=== PATIENT | female | born 1965 | race Caucasian/White ===

== ENCOUNTER 2020-08-02 12:10 | Outpatient (REF) | payer MEDICARE, SELFPAY ==
[2020-08-02 14:24] LABS: Alanine Aminotransferase 16 U/L (0-31); Albumin Level 4.3 g/dL (3.5-5.0); Alkaline Phosphatase 109 U/L (39-117); Anion Gap 14 (12-20); Aspartate Amino Transferase 15 U/L (5-31); Bilirubin Direct 0.2 mg/dL (0.0-0.5); Bilirubin Total 0.6 mg/dL (0.0-1.0); Blood Urea Nitrogen 14 mg/dL (9-16); Calcium 9.6 mg/dL (8.4-10.2); Carbon Dioxide 25 mmol/L (22-29); Chloride 107 mmol/L (96-108); Cholesterol 221 mg/dL; Estimated Glomerular Filt Rate > 60; Glucose Fasting 86 mg/dL (60-99); HDL Cholesterol 41 mg/dL; LDL Cholesterol Calculated 141 mg/dl; Potassium 4.5 mmol/L (3.3-5.1); Sodium 141 mmol/L (135-145); Total Protein 7.1 g/dL (6.5-8.0); Triglycerides 199 mg/dL
[2020-08-02 14:45] LABS: TSH reflex Free T4 0.46 uIU/mL (0.32-4.0)
== END 2020-08-02 12:11 | disposition home or self-care (01) ==
LOC: HO.HMGCLDS 12:10
PROVIDERS: PCP Internal Medicine; Visit Provider Internal Medicine
DX: E03.8 Other specified hypothyroidism (principal); E78.9 Disorder of lipoprotein metabolism, unspecified; J45.909 Unspecified asthma, uncomplicated
CPT/HCPCS: 36415; 80053; 80061; 80076; 82248; 84443

== ENCOUNTER 2021-06-06 10:25 | Outpatient (REF) | payer MEDICARE, SELFPAY ==
[2021-06-06 13:48] LABS: MANUAL DIFF FLAG NO
[2021-06-06 13:52] LABS: Basophils Percent Auto 0.5 % (0-2); Eosinophils Absolute Auto 0.3 X10*3/uL (0.0-0.4); Eosinophils Percent Auto 5.2 % (0-4); Hematocrit 44.3 % (37.0-47.0); Hemoglobin 14.2 g/dl (12.0-16.0); Imm Gran Abs Auto 0.01 X10*3/uL (0.00-0.03); Imm Gran Pct Auto 0.2 % (0.0-0.4); Lymphocytes Absolute Auto 2.5 X10*3/uL (1.2-4.9); Lymphocytes Percent Auto 39.9 % (20-40); Mean Corpuscular HGB Conc 32.1 g/dl (31.0-35.0); Mean Corpuscular Hemoglobin 32.3 pg (27.0-33.0); Mean Corpuscular Volume 100.7 fL (80.0-98.0); Mean Platelet Volume 11.7 fL (9.4-12.3); Monocytes Absolute Auto 0.5 X10*3/uL (0.1-1.2); Monocytes Percent Auto 7.7 % (2-11); Neutrophils Absolute Auto 2.9 x10*3/uL (2.0-8.3); Neutrophils Percent Auto 46.5 % (45-73); Platelet Count 254 X10*3/uL (160-400); Red Cell Distribution Width 11.9 % (11.0-16.0); White Blood Count 6.2 X10*3/uL (4.8-10.8)
[2021-06-06 14:13] LABS: Alanine Aminotransferase 14 U/L (0-31); Albumin Level 3.9 g/dL (3.5-5.0); Alkaline Phosphatase 93 U/L (39-117); Anion Gap 11 (12-20); Aspartate Amino Transferase 15 U/L (5-31); Bilirubin Total 0.6 mg/dL (0.0-1.0); Blood Urea Nitrogen 8 mg/dL (9-16); Calcium 9.4 mg/dL (8.4-10.2); Carbon Dioxide 29 mmol/L (22-29); Chloride 108 mmol/L (96-108); Cholesterol 196 mg/dL; Estimated Glomerular Filt Rate > 60; Glucose Fasting 86 mg/dL (60-99); HDL Cholesterol 42 mg/dL; LDL Cholesterol Calculated 122 mg/dl; Potassium 4.8 mmol/L (3.3-5.1); Sodium 143 mmol/L (135-145); Total Protein 6.6 g/dL (6.5-8.0); Triglycerides 164 mg/dL
[2021-06-06 14:26] LABS: TSH reflex Free T4 0.69 uIU/mL (0.32-4.0)
== END 2021-06-06 10:26 | disposition home or self-care (01) ==
LOC: HO.HMGCLDS 10:25
PROVIDERS: PCP Internal Medicine; Visit Provider Internal Medicine
DX: E03.8 Other specified hypothyroidism (principal); E78.9 Disorder of lipoprotein metabolism, unspecified; J45.909 Unspecified asthma, uncomplicated
CPT/HCPCS: 36415; 80053; 80061; 84443; 85025

== ENCOUNTER 2021-11-02 09:15 | Outpatient (REF) | payer MEDICARE, SELFPAY ==
[2021-11-02 11:42] LABS: Alanine Aminotransferase 17 U/L (0-31); Albumin Level 4.2 g/dL (3.5-5.0); Alkaline Phosphatase 94 U/L (39-117); Anion Gap 12 (12-20); Aspartate Amino Transferase 15 U/L (5-31); Bilirubin Total 0.4 mg/dL (0.0-1.0); Blood Urea Nitrogen 10 mg/dL (9-16); Calcium 9.6 mg/dL (8.4-10.2); Carbon Dioxide 27 mmol/L (22-29); Chloride 106 mmol/L (96-108); Estimated Glomerular Filt Rate > 60; Glucose Random 89 mg/dL (60-115); Potassium 4.4 mmol/L (3.3-5.1); Sodium 141 mmol/L (135-145)
[2021-11-02 12:02] LABS: TSH reflex Free T4 4.94 uIU/mL (0.32-4.0)
[2021-11-02 12:46] LABS: Free T4 (Free Thyroxine) 1.14 ng/dL (0.71-1.85)
== END 2021-11-02 09:16 | disposition home or self-care (01) ==
LOC: HO.HMGCLDS 09:15
PROVIDERS: Visit Provider Internal Medicine
DX: E03.8 Other specified hypothyroidism (principal); E78.9 Disorder of lipoprotein metabolism, unspecified; J45.909 Unspecified asthma, uncomplicated
CPT/HCPCS: 36415; 80053; 84439; 84443

== ENCOUNTER 2022-12-11 12:12 | Outpatient (REF) | payer MEDICARE, SELFPAY ==
--- NOTE | ~2022-12-11 | MM_ITS ---
EXAMINATION: MM SCREENING DIGITAL BREAST TOMOSYNTHESIS, BILATERAL CLINICAL INFORMATION: Screening. Asymptomatic. COMPARISON: Mammography: This study is compared with prior exams dating back to 2015. TECHNIQUE: Digital breast tomosynthesis is performed in both the craniocaudal and mediolateral oblique views along with computer-aided detection (CAD). Synthesized 2D images are generated from the tomosynthesis. FINDINGS: The breasts are almost entirely fatty (ACR BI-RADS breast composition Category a). There are no significant masses, abnormal calcifications, or other abnormalities. MM/MM tomosynthesis screening BI IMPRESSION: No mammographic evidence of malignancy. ASSESSMENT: BI-RADS BI-RADS 1 - Negative RECOMMENDATION: Routine annual mammography screening. 1 year F/U This examination should not preclude the clinical evaluation of a suspicious palpable abnormality. This patient's information was entered into a reminder system with a target due date for their next mammogram.
== END 2022-12-11 12:13 | disposition home or self-care (01) ==
LOC: HO.MAMMO 12:12
PROVIDERS: PCP Internal Medicine; Visit Provider Internal Medicine
DX: Z12.31 Encounter for screening mammogram for malignant neoplasm of breast (principal)
CPT/HCPCS: 77063; 77067

== ENCOUNTER → 2022-12-11 12:15 | Outpatient (BNV) | payer MEDICARE, SELFPAY | PROVIDERS: PCP Internal Medicine; Visit Provider Radiology Diagnostic Radiology | DX: Z12.31 Encounter for screening mammogram for malignant neoplasm of breast (principal) | CPT/HCPCS: 77063; 77067 ==

== ENCOUNTER 2022-12-18 08:51 | Outpatient (AMB) | payer MEDICARE, SELFPAY ==
--- NOTE | 2022-12-18 08:56 | MHC.PC.OV ---
Intake Visit Reasons: Follow [id number] Intake Note: [phone] android Allergies Penicillins [PENICILLINS] Allergy (Severe, Verified 12/18/22 08:56) ANAPHYLAXIS codeine Allergy (Unknown, Verified 12/18/22 08:56) dizziness, hives morphine Allergy (Unknown, Verified 12/18/22 08:56) Unknown penicillin V Allergy (Unknown, Verified 12/18/22 08:56) anaphylaxis Medication List - Last Reconciled 12/18/22 by Evita Vyas MD levothyroxine 100 mcg PO DAILY 90 days pantoprazole 40 mg PO DAILY 90 days ProAir RespiClick 90 mcg/actuation (albuterol sulfate) 1 inh inhalation Q4-6H PRN 30 days NS simvastatin 40 mg PO BEDTIME 90 days Tobacco use date assessed: 12/18/22 Dental Screening Dental Screen Date: 12/18/22 Did you have a dental visit in the last 12 months?: No Did you have a dental problem in the last 6 months where you did not have access to dental care?: Yes Was dental information given to patient?: Patient has dentist HPI Follow [phone] HPI Details Patient is 57-year-old female who was last seen October of last year Patient says that her appointment was canceled after that and she could not make 1. She is taking her thyroid medication patient is on levothyroxine 100 mcg she is due for labs GERD symptoms are stable with pantoprazole 40 mg She continued to take simvastatin as well patient is on 40 mg. Notify patient to have labs done as soon as passable fasting She has Medicare wellness visit of this month I will see her then. [facility] Medical History IBS (irritable bowel syndrome) Psoriasis Other specified hypothyroidism Asthma, mild Lipid disorder Surgical History History of hysteroscopy History of colonoscopy History of wisdom tooth extraction History of appendectomy Ovarian cyst Family History Father Stomach cancer Mother Bone cancer HTN (hypertension) Tumor Sister Uterine cancer Daughter History of CVA (cerebrovascular accident) Son Cancer Brother No problems noted. Brother No problems noted. Social History Housing: House Patient Tobacco Use Status: Never used Tobacco e-Cigarette/Vaping Use: Never Used service: No Current occupational status: disabled Cognitive needs: No Hearing needs: No Vision needs: No Questionnaire AUDIT C Alcohol Use Questionnaire (AUDIT-C) 1. How often do you have a drink containing alcohol?: Never 3. How often do you have six or more drinks on one occasion?: Never Total Score: 0 NOREEN-7 AMB Questionnaire NOREEN-7 Date NOREEN - 7 assessed: 11/02/21 Source: Developed by Drs. Dieter Erwin, Bernice Myles, Moises Gonzalez and colleagues, with an educational adrián from [employer]. Review of Systems Const Denies chills and Denies fever(s) ENT Denies epistaxis and Denies nasal discharge Card Denies chest pain Resp Denies chest congestion, Denies cough and Denies hemoptysis GI Denies diarrhea and Denies nausea Skin/Breast Denies rash Neuro Reports no additional complaints Psych Reports no additional complaints Endo Reports no additional complaints Physical exam (Primary Care) Tobacco/Smoking Status: Tobacco use Status Tobacco use date assessed 12/18/22 12/18/22 08:57 Patient Tobacco Use Status Never used Tobacco 12/18/22 08:57 e-Cigarette/Vaping Use Never Used 12/18/22 08:57 Telehealth Telehealth Location of provider rendering services: practice address Location of patient: address on file Patient Identification confirmed using: Name, : Yes Telehealth method: voice only Patient verbally consented to treatment: Yes Patient verbally consented to billing insurance company: Yes Patient informed of any privacy concerns related to visit: Yes Assessment and Plan Assessment & Plan (1) Lipid disorder: Code(s): E78.9 - Disorder of lipoprotein metabolism, unspecified (2) Other specified hypothyroidism: Code(s): E03.8 - Other specified hypothyroidism (3) Acid reflux: Code(s): K21.9 - Gastro-esophageal reflux disease without esophagitis Qualifiers: Esophagitis presence: without esophagitis Qualified Code(s): K21.9 - Gastro-esophageal reflux disease without esophagitis Plan Patient is 57-year-old female who was last seen October of last year Patient says that her appointment was canceled after that and she could not make 1. She is taking her thyroid medication patient is on levothyroxine 100 mcg she is due for labs GERD symptoms are stable with pantoprazole 40 mg She continued to take simvastatin as well patient is on 40 mg. Notify patient to have labs done as soon as passable fasting She has Medicare wellness visit 20th of this month I will see her then. Orders: Orders Complete Blood Count Auto Diff Today E03.8 - Other specified hypothyroidism, E78.9 - Disorder of lipoprotein metabolism, unspecified, K21.9 - Gastro-esophageal reflux disease without esophagitis TSH reflex Free T4 Today E03.8 - Other specified hypothyroidism, E78.9 - Disorder of lipoprotein metabolism, unspecified, K21.9 - Gastro-esophageal reflux disease without esophagitis Comprehensive [place]. Panel Fast Today E03.8 - Other specified hypothyroidism, E78.9 - Disorder of lipoprotein metabolism, unspecified, K21.9 - Gastro-esophageal reflux disease without esophagitis Lipid Panel Today E03.8 - Other specified hypothyroidism, E78.9 - Disorder of lipoprotein metabolism, unspecified, K21.9 - Gastro-esophageal reflux disease without esophagitis Coding Level of Care Code Tele Est Pt Level 3 (67237) Diagnoses Lipid disorder E78.9 Other specified hypothyroidism E03.8 Gastroesophageal reflux disease without esophagitis K21.9 Esophagitis presence: without esophagitis Comment 3 min prep , 13 with patient, 10 charting / labs
== END 2022-12-18 12:15 | disposition home or self-care (01) ==
LOC: HO.HMGC 08:51
PROVIDERS: PCP Internal Medicine; Visit Provider Internal Medicine
DX: E78.9 Disorder of lipoprotein metabolism, unspecified (principal); E03.8 Other specified hypothyroidism; K21.9 Gastro-esophageal reflux disease without esophagitis
CPT/HCPCS: G2252

== ENCOUNTER 2022-12-23 09:06 | Outpatient (REF) | payer MEDICARE, SELFPAY ==
[2022-12-23 11:10] LABS: MANUAL DIFF FLAG NO
[2022-12-23 11:30] LABS: Basophils Absolute Auto 0.1 X10*3/uL (0.0-0.2); Basophils Percent Auto 0.7 % (0-2); Eosinophils Absolute Auto 0.4 X10*3/uL (0.0-0.4); Eosinophils Percent Auto 5.1 % (0-4); Hematocrit 46.9 % (37.0-47.0); Hemoglobin 15.4 g/dl (12.0-16.0); Imm Gran Abs Auto 0.01 X10*3/uL (0.00-0.03); Imm Gran Pct Auto 0.1 % (0.0-0.4); Lymphocytes Absolute Auto 2.8 X10*3/uL (1.2-4.9); Lymphocytes Percent Auto 37.4 % (20-40); Mean Corpuscular HGB Conc 32.8 g/dl (31.0-35.0); Mean Corpuscular Volume 100.4 fL (80.0-98.0); Mean Platelet Volume 11.6 fL (9.4-12.3); Monocytes Absolute Auto 0.5 X10*3/uL (0.1-1.2); Neutrophils Absolute Auto 3.8 x10*3/uL (2.0-8.3); Neutrophils Percent Auto 49.7 % (45-73); Platelet Count 269 X10*3/uL (160-400); Red Blood Count 4.67 X10*6/uL (4.20-5.50); Red Cell Distribution Width 12.3 % (11.0-16.0); White Blood Count 7.6 X10*3/uL (4.8-10.8)
[2022-12-23 12:23] LABS: Alanine Aminotransferase 18 U/L (0-31); Albumin Level 4.2 g/dL (3.5-5.0); Alkaline Phosphatase 99 U/L (39-117); Anion Gap 13 (12-20); Aspartate Amino Transferase 21 U/L (5-31); Bilirubin Total 0.5 mg/dL (0.0-1.0); Blood Urea Nitrogen 13 mg/dL (9-16); Calcium 9.6 mg/dL (8.4-10.2); Carbon Dioxide 26 mmol/L (22-29); Chloride 106 mmol/L (96-108); Cholesterol 227 mg/dL (<200); Estimated Glomerular Filt Rate > 60; Glucose Fasting 97 mg/dL (60-99); HDL Cholesterol 42 mg/dL (>40); LDL Cholesterol Calculated 140 mg/dL (<100); Potassium 4.7 mmol/L (3.3-5.1); Sodium 140 mmol/L (135-145); Total Protein 7.5 g/dL (6.5-8.0); Triglycerides 227 mg/dL (<150)
[2022-12-23 12:46] LABS: TSH reflex Free T4 12.15 uIU/mL (0.32-4.0)
[2022-12-23 13:20] LABS: Free T4 (Free Thyroxine) 1.05 ng/dL (0.71-1.85)
== END 2022-12-23 09:07 | disposition home or self-care (01) ==
LOC: HO.HMGCLDS 09:06
PROVIDERS: PCP Internal Medicine; Visit Provider Internal Medicine
DX: E03.8 Other specified hypothyroidism (principal); E78.9 Disorder of lipoprotein metabolism, unspecified; K21.9 Gastro-esophageal reflux disease without esophagitis
CPT/HCPCS: 36415; 80053; 80061; 84439; 84443; 85025

== ENCOUNTER 2022-12-25 12:15 | Outpatient (AMB) | payer MEDICARE, SELFPAY ==
--- NOTE | 2022-12-25 12:16 | MHC.PC.OV ---
Vital Signs 12/25/22 12:17 Height 5 ft 5 in Weight 178 lb BMI 29.6 BP 130/90 H Blood Pressure Location Rt brachial Position Sitting Pulse 66 Pulse Source Pulse Oximeter Pulse Oximetry (%) 97 Oxygen Delivery Method Room Air Intake Visit Reasons: Annual Physical Allergies Penicillins [PENICILLINS] Allergy (Severe, Verified 12/25/22 12:17) ANAPHYLAXIS codeine Allergy (Unknown, Verified 12/25/22 12:17) dizziness, hives morphine Allergy (Unknown, Verified 12/25/22 12:17) Unknown penicillin V Allergy (Unknown, Verified 12/25/22 12:17) anaphylaxis Medication List - Last Reconciled 12/25/22 by Evita Vyas MD levothyroxine 100 mcg PO DAILY 90 days pantoprazole 40 mg PO DAILY 90 days ProAir RespiClick 90 mcg/actuation (albuterol sulfate) 1 inh inhalation Q4-6H PRN 30 days NS simvastatin 40 mg PO BEDTIME 90 days Tobacco use date assessed: 12/25/22 Dental Screening Dental Screen Date: 12/25/22 Did you have a dental visit in the last 12 months?: Yes Did you have a dental problem in the last 6 months where you did not have access to dental care?: No Was dental information given to patient?: Patient has dentist HPI Annual Physical HPI Details Patient is a 57-year-old female came in today for a physical exam Patient had labs done recently her TSH level came back at 12.15 She says that she is taking levothyroxine 100 mcg regularly however when she picked up her last script her tablets were different than her usual medication and since then she also has been feeling tired. She has developed rash on the palm of her hand and soles as well which is very itchy she is requesting a cream for that I am changing her levothyroxine to brand name Synthroid 150 mg, patient is to repeat labs again in 2 months. This time she will be doing them fasting so we can also check her cholesterol. New blood pressure is 130/90 will continue to monitor that meanwhile she is to cut down on salt intake Continue pantoprazole and simvastatin, LDL is 140 which has worsened from before Mammogram is up-to-date Patient declined to do Pap smear She agree to do Cologuard but not colonoscopy. We will book virtual visit in 2-1/2 month to go over her lab report Regular follow-up in 6 months and physical exam in 1 year. [facility] Medical History IBS (irritable bowel syndrome) Psoriasis Other specified hypothyroidism Asthma, mild Lipid disorder Surgical History History of hysteroscopy History of colonoscopy History of wisdom tooth extraction History of appendectomy Ovarian cyst Family History Father Stomach cancer Mother Bone cancer HTN (hypertension) Tumor Sister Uterine cancer Daughter History of CVA (cerebrovascular accident) Son Cancer Brother No problems noted. Brother No problems noted. Social History Housing: House Patient Tobacco Use Status: Never used Tobacco e-Cigarette/Vaping Use: Never Used service: No Current occupational status: disabled Cognitive needs: No Hearing needs: No Vision needs: No Questionnaire PHQ-9 Over the last 2 weeks, how often have you been bothered by any of the following problems? 1. Little interest or pleasure in doing things: several days 2. Feeling down, depressed, or hopeless: several days 3. Trouble falling or staying asleep, or sleeping too much: several days 4. Feeling tired or having little energy: nearly every day 5. Poor appetite or overeating: more than half the days 6. Feeling bad about yourself - or that you are a failure or have let yourself or your family down: several days 7. Trouble concentrating on things, such as reading the newspaper or watching television: more than half the days 8. Moving or speaking so slowly that other people could have noticed. Or the opposite - being so fidgety or restless that you have been moving around a lot more than usual: several days 9. Thoughts that you would be better off or of hurting yourself in some way: not at all Total score: 12 Depression Screening Interpretation: Negative 92645 - PHQ-9 Billing: Yes Source: Developed by Drs. Dieter Erwin, Bernice Myles, Moises Gonzalez and colleagues, with an educational adrián from [employer]. Thrive Questionnaire Date Thrive assessed: 12/25/22 I am a: Patient What is your living situation today?: I have a steady place to live Within the past 12 months, did the food you bought not last and you didn't have the money to get more?: Sometimes True Within the past 12 months, did you worry whether your food would run out before you got money to buy more?: Sometimes True Do you have trouble paying for medicines?: No Do you have trouble getting transportation to medical appointments?: Yes Do you have trouble paying your heating and electricity bill?: Yes Do you have trouble taking care of your child, family member or friend?: No Do you have trouble with day-to-day activities such as bathing, preparing meals, shopping, managing finances, etc.?: No Are you currently unemployed and looking for a job?: No Are you interested in more education?: No Please select the resources that you would like help with: Food and Utilities AUDIT C Alcohol Use Questionnaire (AUDIT-C) 1. How often do you have a drink containing alcohol?: Never 3. How often do you have six or more drinks on one occasion?: Never Total Score: 0 Score Reviewed/Action Taken: Yes NOREEN-7 AMB Questionnaire NOREEN-7 Date NOREEN - 7 assessed: 12/25/22 Feeling nervous, anxious, or on edge: 2 = More than half the days Not being able to stop or control worryin = Several days Worrying too much about different things: 1 = Several days Trouble relaxin = More than half the days Being so restless that it is hard to sit still: 1 = Several days Becoming easily annoyed or irritable: 1 = Several days Feeling afraid as if something awful might happen: 1 = Several days Total NOREEN-7 score (0-4 normal; 5-9 mild; 10-14 moderate; 15-21 severe): 9 Source: Developed by Drs. Dieter Erwin, Bernice Myles, Moises Gonzalez and colleagues, with an educational adrián from [employer]. Review of Systems Const Denies chills, Denies fever(s) and Denies headache(s) Eyes Denies blurry vision ENT Denies headache(s), Denies nasal discharge, Denies nasal obstruction, Denies odynophagia and Denies sinus pain Card Denies chest pain at rest and Denies chest pain with activity Resp Denies cough and Denies hemoptysis GI Denies diarrhea, Denies odynophagia, Denies vomiting and Denies hematemesis Reports as per HPI Musc Denies abnormal gait Skin/Breast Reports as per HPI Neuro Denies Neuro-related abnormal movements, Denies Abnormal speech present, Denies abnormal gait, Denies headache(s) and Denies Sensory deficit (Neuro) Psych Denies mood swings and Denies paranoia Endo Reports as per HPI Rio/Lymph Reports as per HPI Aller/Immun Reports as per HPI Physical exam (Primary Care) Vital Signs: Last Vital Signs Pulse 66 12/25/22 12:17 BP 130/90 H 12/25/22 12:17 Pulse Ox 97 12/25/22 12:17 Oxygen Delivery Method Room Air 12/25/22 12:17 BMI result Body Mass Index 29.6 Tobacco/Smoking Status: Tobacco use Status Tobacco use date assessed 12/25/22 12/25/22 12:20 Patient Tobacco Use Status Never used Tobacco 12/25/22 12:20 e-Cigarette/Vaping Use Never Used 12/25/22 12:20 PHQ-9: PHQ-9 Score PHQ-9: Total score 12 12/25/22 13:26 Depression Screening Interpretation: Negative Thrive Assessment: Date of Thrive Assessment Date Thrive assessed 12/25/22 12/25/22 13:26 Const General: cooperative, comfortable and no acute distress Orientation/consciousness: patient oriented x3 HENMT Head: Yes normocephalic and Yes atraumatic Eyes General: appearance normal, both eyes and all related structures Pupils: Equal, round and reactive pupils present EOM: EOMs intact bilaterally Neck Neck: Yes supple and No lymphadenopathy Thyroid: Thyroid normal Lymphatic: no lymphadenopathy noted Resp Effort & Inspection: normal respiratory effort and able to speak in complete sentences Auscultation: clear to auscultation bilaterally Cardio Heart sounds: S1 normal heart sound present and S2 normal heart sound present GI Palpation (GI): Soft to palpation and nontender Auscultation: normal bowel sounds General: Yes no CVA tenderness Back/Spine/Pelvis Back: no CVA tenderness Skin Other: Macular papular scaly rash on palm of hands and feet General skin exam: elasticity normal and turgor normal Neuro General: patient oriented x3 and gait normal Cranial nerves: Yes Equal, round and reactive pupils present Speech: No Abnormal speech present Sensory Exam: No Sensory deficit (Neuro) Coordination: tandem gait normal and Romberg test negative Extrem General: Yes normal exam except as noted and No edema Assessment and Plan Assessment & Plan (1) Encounter for general adult medical examination with abnormal findings: Code(s): Z00.01 - Encounter for general adult medical examination with abnormal findings (2) Lipid disorder: Code(s): E78.9 - Disorder of lipoprotein metabolism, unspecified (3) Other specified hypothyroidism: Code(s): E03.8 - Other specified hypothyroidism (4) Psoriasis: Code(s): L40.9 - Psoriasis, unspecified (5) Acid reflux: Code(s): K21.9 - Gastro-esophageal reflux disease without esophagitis Qualifiers: Esophagitis presence: without esophagitis Qualified Code(s): K21.9 - Gastro-esophageal reflux disease without esophagitis (6) Overweight (BMI 25.0-29.9): Code(s): E66.3 - Overweight Plan Patient is a 57-year-old female came in today for a physical exam Patient had labs done recently her TSH level came back at 12.15 She says that she is taking levothyroxine 100 mcg regularly however when she picked up her last script her tablets were different than her usual medication and since then she also has been feeling tired. She has developed rash on the palm of her hand and soles as well which is very itchy she is requesting a cream for that I am changing her levothyroxine to brand name Synthroid 150 mg, patient is to repeat labs again in 2 months. This time she will be doing them fasting so we can also check her cholesterol. New blood pressure is 130/90 will continue to monitor that meanwhile she is to cut down on salt intake Continue pantoprazole and simvastatin, LDL is 140 which has worsened from before Mammogram is up-to-date Patient declined to do Pap smear She agree to do Cologuard but not colonoscopy. We will book virtual visit in 2-1/2 month to go over her lab report Regular follow-up in 6 months and physical exam in 1 year. Orders: Referrals Cologuard Test Z12.11 - Encounter for screening for malignant neoplasm of colon Medications: New Synthroid (levothyroxine) 150 mcg PO DAILY 90 tabs 0RF NS clotrimazole-betamethasone 1-0.05 % 1 appl topical ONCE 45 grams 0RF 30 days Coding Level of Care Code Est Pt Prev Care 40-64y(75795) Diagnoses Encounter for general adult medical examination with abnormal findings Z00.01 Lipid disorder E78.9 Other specified hypothyroidism E03.8 Psoriasis L40.9 Gastroesophageal reflux disease without esophagitis K21.9 Esophagitis presence: without esophagitis Overweight (BMI 25.0-29.9) E66.3
[2022-12-25 12:17] VITALS: BP 130/90; PULSE 66; O2SAT 97; BMI 29.6
== END 2022-12-25 12:47 | disposition home or self-care (01) ==
PROVIDERS: Visit Provider Internal Medicine
DX: Z00.00 Encounter for general adult medical examination without abnormal findings (principal); E03.8 Other specified hypothyroidism; K21.9 Gastro-esophageal reflux disease without esophagitis; E78.9 Disorder of lipoprotein metabolism, unspecified; L40.9 Psoriasis, unspecified; E66.3 Overweight
CPT/HCPCS: 99396

== ENCOUNTER 2023-03-10 10:42 | Outpatient (REF) | payer MEDICARE, SELFPAY ==
[2023-03-10 14:21] LABS: TSH reflex Free T4 0.98 uIU/mL (0.32-4.0)
== END 2023-03-10 10:43 | disposition home or self-care (01) ==
LOC: HO.HMGCLDS 10:42
PROVIDERS: PCP Internal Medicine; Visit Provider Internal Medicine
DX: E03.8 Other specified hypothyroidism (principal)
CPT/HCPCS: 36415; 84443

== ENCOUNTER 2023-06-20 11:02 | Outpatient (AMB) | payer MEDICARE, SELFPAY ==
[2023-06-20 11:03] VITALS: BP 116/78; PULSE 75; O2SAT 97; BMI 30.4
--- NOTE | 2023-06-20 11:03 | MHC.PC.OV ---
Vital Signs 06/20/23 11:03 Height 5 ft 5 in Weight 182 lb 8 oz BMI 30.4 BP 116/78 Blood Pressure Location Rt brachial Position Sitting Pulse 75 Pulse Source Pulse Oximeter Pulse Oximetry (%) 97 Oxygen Delivery Method Room Air Intake Visit Reasons: Overdue f/u~ Forms Allergies Penicillins [PENICILLINS] Allergy (Severe, Verified 06/20/23 11:03) ANAPHYLAXIS codeine Allergy (Unknown, Verified 06/20/23 11:03) dizziness, hives morphine Allergy (Unknown, Verified 06/20/23 11:03) Unknown penicillin V Allergy (Unknown, Verified 06/20/23 11:03) anaphylaxis Medication List - Last Reconciled 06/20/23 by Evita Vyas MD clotrimazole-betamethasone 1-0.05 % 1 appl topical ONCE 30 days ProAir RespiClick 90 mcg/actuation (albuterol sulfate) 1 inh inhalation Q4-6H PRN 30 days NS Synthroid (levothyroxine) 150 mcg PO DAILY NS Tobacco use date assessed: 06/20/23 Dental Screening Dental Screen Date: 06/20/23 Did you have a dental visit in the last 12 months?: Yes Did you have a dental problem in the last 6 months where you did not have access to dental care?: No Was dental information given to patient?: Patient has dentist HPI Overdue f/u~ Forms HPI Details Patient is a 58-year-old female came in today for six-month follow-up appointment Patient has hypothyroidism currently she is taking Synthroid 150 mcg her last TSH was checked in March and it was within normal limit Patient has been suffering from wheezing since she has had chest cold in March, 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 I am adding Symbicort inhaler she may start using 2 puffs q.12, patient was instructed to rinse her mouth after. Blood pressure is stable BMI is elevated 30.4 patient need to lose weight She is taking care of daughter's children who has One of the child does not have father's name known, he would like to adopt patient's name rather than last of his other siblings For that reason patient need to formally adopt the child She brought in forms to be filled which I have. She has appointment in December for physical examination, labs to be done before visit fasting [facility] Medical History IBS (irritable bowel syndrome) Psoriasis Other specified hypothyroidism Asthma, mild Lipid disorder Surgical History History of hysteroscopy History of colonoscopy History of wisdom tooth extraction History of appendectomy Ovarian cyst Family History Father Stomach cancer Mother Bone cancer HTN (hypertension) Tumor Sister Uterine cancer Daughter History of CVA (cerebrovascular accident) Son Cancer Brother No problems noted. Brother No problems noted. Social History Housing: House Patient Tobacco Use Status: Never used Tobacco e-Cigarette/Vaping Use: Never Used service: No Current occupational status: disabled Cognitive needs: No Hearing needs: No Vision needs: No Questionnaire Thrive Questionnaire Date Thrive assessed: 12/25/22 AUDIT C Alcohol Use Questionnaire (AUDIT-C) 1. How often do you have a drink containing alcohol?: Never 3. How often do you have six or more drinks on one occasion?: Never Total Score: 0 Score Reviewed/Action Taken: Yes NOREEN-7 AMB Questionnaire NOREEN-7 Date NOREEN - 7 assessed: 12/25/22 Source: Developed by Drs. Dieter Erwin, Bernice Myles, Moises Gonzalez and colleagues, with an educational adrián from [employer]. Review of Systems Const Denies chills and Denies fever(s) ENT Denies epistaxis and Denies nasal discharge Card Denies chest pain Resp Denies chest congestion, Denies cough and Denies hemoptysis GI Denies diarrhea and Denies nausea Skin/Breast Denies rash Neuro Reports no additional complaints Psych Reports no additional complaints Endo Reports no additional complaints Physical exam (Primary Care) Vital Signs: Last Vital Signs Pulse 75 06/20/23 11:03 BP 116/78 06/20/23 11:03 Pulse Ox 97 06/20/23 11:03 Oxygen Delivery Method Room Air 06/20/23 11:03 BMI result Body Mass Index 30.4 Tobacco/Smoking Status: Tobacco use Status Tobacco use date assessed 06/20/23 06/20/23 11:09 Patient Tobacco Use Status Never used Tobacco 06/20/23 11:09 e-Cigarette/Vaping Use Never Used 06/20/23 11:09 Thrive Assessment: Date of Thrive Assessment Date Thrive assessed 12/25/22 06/20/23 11:09 Const General: cooperative, comfortable and no acute distress Orientation/consciousness: patient oriented x3 HENMT Head: Yes normocephalic Eyes General: appearance normal, both eyes and all related structures Neck Neck: Yes supple Resp Effort & Inspection: normal respiratory effort, no cough and no stridor Cardio Rhythm: regular rhythm Heart sounds: S1 normal heart sound present and S2 normal heart sound present Skin General skin exam: turgor normal Neuro General: patient oriented x3, tone normal and moves all extremities Extrem Right lower extremity: no edema Left lower extremity: no edema Assessment and Plan Assessment & Plan (1) Other specified hypothyroidism: Code(s): E03.8 - Other specified hypothyroidism (2) Lipid disorder: Code(s): E78.9 - Disorder of lipoprotein metabolism, unspecified (3) Psoriasis: Code(s): L40.9 - Psoriasis, unspecified (4) Acid reflux: Code(s): K21.9 - Gastro-esophageal reflux disease without esophagitis Qualifiers: Esophagitis presence: without esophagitis Qualified Code(s): K21.9 - Gastro-esophageal reflux disease without esophagitis (5) Obesity due to excess calories: Code(s): E66.09 - Other obesity due to excess calories Qualifiers: Body mass index: BMI 30.0-30.9 Obesity classification: adult class 1 (BMI 30 - 34.9) Serious obesity comorbidity presence: without serious comorbidity Qualified Code(s): E66.09 - Other obesity due to excess calories; Z68.30 - Body mass index [BMI] 30.0-30.9, adult Plan Patient is a 58-year-old female came in today for six-month follow-up appointment Patient has hypothyroidism currently she is taking Synthroid 150 mcg her last TSH was checked in March and it was within normal limit Patient has been suffering from wheezing since she has had chest cold in March, 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 I am adding Symbicort inhaler she may start using 2 puffs q.12, patient was instructed to rinse her mouth after. Blood pressure is stable BMI is elevated 30.4 patient need to lose weight She is taking care of daughter's children who has One of the child does not have father's name known, he would like to adopt patient's name rather than last of his other siblings For that reason patient need to formally adopt the child She brought in forms to be filled which I have. She has appointment in December for physical examination, labs to be done before visit fasting Orders: Orders Complete Blood Count Auto Diff 5 Months E03.8 - Other specified hypothyroidism, E66.09 - Other obesity due to excess calories, E78.9 - Disorder of lipoprotein metabolism, unspecified, K21.9 - Gastro-esophageal reflux disease without esophagitis, L40.9 - Psoriasis, unspecified Lipid Panel 5 Months E03.8 - Other specified hypothyroidism, E66.09 - Other obesity due to excess calories, E78.9 - Disorder of lipoprotein metabolism, unspecified, K21.9 - Gastro-esophageal reflux disease without esophagitis, L40.9 - Psoriasis, unspecified Comprehensive [place]. Panel Fast 5 Months E03.8 - Other specified hypothyroidism, E66.09 - Other obesity due to excess calories, E78.9 - Disorder of lipoprotein metabolism, unspecified, K21.9 - Gastro-esophageal reflux disease without esophagitis, L40.9 - Psoriasis, unspecified TSH reflex Free T4 5 Months E03.8 - Other specified hypothyroidism, E66.09 - Other obesity due to excess calories, E78.9 - Disorder of lipoprotein metabolism, unspecified, K21.9 - Gastro-esophageal reflux disease without esophagitis, L40.9 - Psoriasis, unspecified Medications: New budesonide-formoterol 160-4.5 mcg/actuation (Symbicort) 2 puffs inhalation BID 10.2 grams 3RF 30 days J45.909 - Unspecified asthma, uncomplicated Coding Level of Care Code Est Pt Level 4 (63364) Diagnoses Other specified hypothyroidism E03.8 Lipid disorder E78.9 Psoriasis L40.9 Gastroesophageal reflux disease without esophagitis K21.9 Esophagitis presence: without esophagitis Class 1 obesity due to excess calories without serious comorbidity with body mass index (BMI) of 30.0 to 30.9 in adult E66.09; Z68.30 Body mass index: BMI 30.0-30.9 Obesity classification: adult class 1 (BMI 30 - 34.9) Serious obesity comorbidity presence: without serious comorbidity
== END 2023-06-20 15:57 | disposition home or self-care (01) ==
PROVIDERS: PCP Internal Medicine; Visit Provider Internal Medicine
DX: E03.8 Other specified hypothyroidism (principal); E78.9 Disorder of lipoprotein metabolism, unspecified; L40.9 Psoriasis, unspecified; K21.9 Gastro-esophageal reflux disease without esophagitis; E66.09 Other obesity due to excess calories; Z68.30 Body mass index [BMI] 30.0-30.9, adult
CPT/HCPCS: 99214

== ENCOUNTER 2023-12-15 11:08 | Outpatient (REF) | payer MEDICARE, SELFPAY ==
[2023-12-15 13:21] LABS: MANUAL DIFF FLAG NO
[2023-12-15 13:27] LABS: Basophils Percent Auto 0.5 % (0-2); Eosinophils Absolute Auto 0.5 X10*3/uL (0.0-0.4); Eosinophils Percent Auto 5.9 % (0-4); Imm Gran Abs Auto 0.02 X10*3/uL (0.00-0.03); Imm Gran Pct Auto 0.2 % (0.0-0.4); Lymphocytes Absolute Auto 2.9 X10*3/uL (1.2-4.9); Lymphocytes Percent Auto 33.3 % (20-40); Mean Corpuscular HGB Conc 33.3 g/dl (31.0-35.0); Mean Corpuscular Hemoglobin 31.8 pg (27.0-33.0); Mean Corpuscular Volume 95.5 fL (80.0-98.0); Mean Platelet Volume 11.4 fL (9.4-12.3); Monocytes Absolute Auto 0.7 X10*3/uL (0.1-1.2); Monocytes Percent Auto 8.3 % (2-11); Neutrophils Absolute Auto 4.5 x10*3/uL (2.0-8.3); Neutrophils Percent Auto 51.8 % (45-73); Platelet Count 292 X10*3/uL (160-400); Red Blood Count 4.71 X10*6/uL (4.20-5.50); Red Cell Distribution Width 11.6 % (11.0-16.0); White Blood Count 8.7 X10*3/uL (4.8-10.8)
[2023-12-15 14:03] LABS: Alanine Aminotransferase 14 U/L (0-31); Albumin Level 3.9 g/dL (3.5-5.0); Alkaline Phosphatase 109 U/L (39-117); Anion Gap 13 (12-20); Aspartate Amino Transferase 17 U/L (5-31); Bilirubin Total 0.4 mg/dL (0.0-1.0); Blood Urea Nitrogen 17 mg/dL (9-16); Calcium 9.9 mg/dL (8.4-10.2); Carbon Dioxide 26 mmol/L (22-29); Chloride 106 mmol/L (96-108); Cholesterol 239 mg/dL (<200); Estimated Glomerular Filt Rate > 60; Glucose Fasting 100 mg/dL (60-99); HDL Cholesterol 33 mg/dL (>40); Potassium 4.8 mmol/L (3.3-5.1); Sodium 140 mmol/L (135-145); TSH reflex Free T4 0.01 uIU/mL (0.32-4.0); Total Protein 7.2 g/dL (6.5-8.0); Triglycerides 514 mg/dL (<150)
[2023-12-15 15:27] LABS: Free T4 (Free Thyroxine) 1.13 ng/dL (0.71-1.85)
== END 2023-12-15 11:09 | disposition home or self-care (01) ==
LOC: HO.HMGCLDS 11:08
PROVIDERS: PCP Internal Medicine; Visit Provider Internal Medicine
DX: E66.09 Other obesity due to excess calories (principal); K21.9 Gastro-esophageal reflux disease without esophagitis; L40.9 Psoriasis, unspecified; E03.8 Other specified hypothyroidism; E78.9 Disorder of lipoprotein metabolism, unspecified
CPT/HCPCS: 36415; 80053; 80061; 84439; 84443; 85025

== ENCOUNTER 2023-12-31 14:39 | Outpatient (AMB) | payer MEDICARE, SELFPAY ==
[2023-12-31 14:43] VITALS: BP 110/74; PULSE 73; O2SAT 97; BMI 30.3
--- NOTE | 2023-12-31 14:43 | MHC.PC.OV ---
Vital Signs 12/31/23 14:43 Height 5 ft 5 in Weight 182 lb BMI 30.3 BP 110/74 Blood Pressure Location Lt brachial Position Sitting Pulse 73 Pulse Source Pulse Oximeter Pulse Oximetry (%) 97 Oxygen Delivery Method Room Air Intake Visit Reasons: Annual Physical - see comments Allergies Penicillins [PENICILLINS] Allergy (Severe, Verified 12/31/23 14:45) ANAPHYLAXIS codeine Allergy (Unknown, Verified 12/31/23 14:45) dizziness, hives morphine Allergy (Unknown, Verified 12/31/23 14:45) Unknown penicillin V Allergy (Unknown, Verified 12/31/23 14:45) anaphylaxis Medication List - Last Reconciled 12/31/23 by Evita Vyas MD budesonide-formoterol 160-4.5 mcg/actuation (Symbicort) 2 puffs inhalation BID 30 days clotrimazole-betamethasone 1-0.05 % 1 appl topical ONCE 30 days ProAir RespiClick 90 mcg/actuation (albuterol sulfate) 1 inh inhalation Q4-6H PRN 30 days NS Synthroid (levothyroxine) 150 mcg PO DAILY NS Tobacco use date assessed: 12/31/23 Dental Screening Dental Screen Date: 12/31/23 Did you have a dental visit in the last 12 months?: Yes Did you have a dental problem in the last 6 months where you did not have access to dental care?: No Was dental information given to patient?: Patient has dentist HPI Annual Physical - see comments HPI Details Patient is a 58-year-old female came in today for physical exam and follow-up appointment Patient had labs done recently her TSH level came back at 0.01, she is currently on 150 mcg of levothyroxine I am changing it to 125 mcg She is taking [id number] thyroid supplement which has IUD minute, instructed patient to stop taking that. Her triglyceride levels are 514, she was taking simvastatin which started causing brain fog so she stopped I am starting her on fenofibrate, patient is to repeat labs fasting in 2 months I ordered Cologuard for the patient last year she never sent the sample back I am ordering it again She is also due for mammogram Does not want to see OBGYN Patient have developed chronic dermatosis with palm and sole of feet She is using steroid cream which is helping, however she has not seen Dermatology, referral placed Asthma is stable with Symbicort Patient is to return in 3 months for follow-up appointment in 1 year physical exam [facility] Medical History Rash IBS (irritable bowel syndrome) Psoriasis Other specified hypothyroidism Asthma, mild Lipid disorder Surgical History History of hysteroscopy History of colonoscopy History of wisdom tooth extraction History of appendectomy Ovarian cyst Family History Father Stomach cancer Mother Bone cancer HTN (hypertension) Tumor Sister Uterine cancer Daughter History of CVA (cerebrovascular accident) Son Cancer Brother No problems noted. Brother No problems noted. Social History Housing: House Patient Tobacco Use Status: Never used Tobacco e-Cigarette/Vaping Use: Never Used service: No Current occupational status: disabled Cognitive needs: No Hearing needs: No Vision needs: No Questionnaire PHQ-9 Over the last 2 weeks, how often have you been bothered by any of the following problems? 1. Little interest or pleasure in doing things: more than half the days 2. Feeling down, depressed, or hopeless: more than half the days 3. Trouble falling or staying asleep, or sleeping too much: more than half the days 4. Feeling tired or having little energy: more than half the days 5. Poor appetite or overeating: not at all 6. Feeling bad about yourself - or that you are a failure or have let yourself or your family down: not at all 7. Trouble concentrating on things, such as reading the newspaper or watching television: nearly every day 8. Moving or speaking so slowly that other people could have noticed. Or the opposite - being so fidgety or restless that you have been moving around a lot more than usual: not at all 9. Thoughts that you would be better off or of hurting yourself in some way: not at all Total score: 11 Depression Screening Interpretation: Positive Depression Screening Follow-up: Existing condition and Declines treatment Depression Screening Done: Yes 96193 - PHQ-9 Billing: Yes Source: Developed by Bernice Hernandez Shar, Moises Gonzalez and colleagues, with an educational adrián from [employer]. Thrive Questionnaire Date Thrive assessed: 12/31/23 I am a: Patient What is your living situation today?: I have a steady place to live Within the past 12 months, did the food you bought not last and you didn't have the money to get more?: Sometimes True Within the past 12 months, did you worry whether your food would run out before you got money to buy more?: Sometimes True Do you have trouble paying for medicines?: I choose not to answer this question Do you have trouble getting transportation to medical appointments?: I choose not to answer this question Do you have trouble paying your heating and electricity bill?: I choose not to answer this question Do you have trouble taking care of your child, family member or friend?: I choose not to answer this question Do you have trouble with day-to-day activities such as bathing, preparing meals, shopping, managing finances, etc.?: I choose not to answer this question Are you currently unemployed and looking for a job?: I choose not to answer this question Are you interested in more education?: I choose not to answer this question Please select the resources that you would like help with: None Currently or been in a relationship where the following occur: I choose not to answer THRIVE Score: 2 AUDIT C Alcohol Use Questionnaire (AUDIT-C) 1. How often do you have a drink containing alcohol?: 2-4 times a month 2. How many drinks containing alcohol do you have on a typical day when you are drinking?: 1 or 2 3. How often do you have six or more drinks on one occasion?: Monthly Total Score: 4 Score Reviewed/Action Taken: Yes NOREEN-7 AMB Questionnaire NOREEN-7 Date NOREEN - 7 assessed: 12/31/23 Feeling nervous, anxious, or on edge: 3 = Nearly every day Not being able to stop or control worryin = More than half the days Worrying too much about different things: 2 = More than half the days Trouble relaxin = More than half the days Being so restless that it is hard to sit still: 0 = Not at all Becoming easily annoyed or irritable: 0 = Not at all Feeling afraid as if something awful might happen: 2 = More than half the days Total NOREEN-7 score (0-4 normal; 5-9 mild; 10-14 moderate; 15-21 severe): 11 Source: Developed by Drs. Dieter Erwin, Bernice Myles, Moises Gonzalez and colleagues, with an educational adrián from [employer]. NOREEN-7 Assessment Billing NOREEN-7 Assessment Tool: NOREEN-7 Assessment 16299 Review of Systems Const Denies chills, Denies fever(s) and Denies headache(s) Eyes Denies blurry vision ENT Denies headache(s), Denies nasal discharge, Denies nasal obstruction, Denies odynophagia and Denies sinus pain Card Denies chest pain at rest and Denies chest pain with activity Resp Denies cough and Denies hemoptysis GI Denies diarrhea, Denies odynophagia, Denies vomiting and Denies hematemesis Reports as per HPI Musc Denies abnormal gait Skin/Breast Reports as per HPI Neuro Denies Neuro-related abnormal movements, Denies Abnormal speech present, Denies abnormal gait, Denies headache(s) and Denies Sensory deficit (Neuro) Psych Denies mood swings and Denies paranoia Endo Reports as per HPI [place]/Lymph Reports as per HPI Aller/Immun Reports as per HPI Physical exam (Primary Care) Vital Signs: Last Vital Signs Pulse 73 12/31/23 14:43 BP 110/74 12/31/23 14:43 Pulse Ox 97 12/31/23 14:43 Oxygen Delivery Method Room Air 12/31/23 14:43 BMI result Body Mass Index 30.3 Tobacco/Smoking Status: Tobacco use Status Tobacco use date assessed 12/31/23 12/31/23 14:46 Patient Tobacco Use Status Never used Tobacco 12/31/23 14:44 e-Cigarette/Vaping Use Never Used 12/31/23 14:44 PHQ-9: PHQ-9 Score PHQ-9: Total score 11 12/31/23 15:03 Depression Screening Interpretation: Positive Depression Screening Follow-up: Existing condition and Declines treatment Thrive Assessment: Date of Thrive Assessment Date Thrive assessed 12/31/23 12/31/23 14:46 Currently or been in a relationship where the following occur: I choose not to answer Const General: cooperative, comfortable and no acute distress Orientation/consciousness: patient oriented x3 HENMT Head: Yes normocephalic and Yes atraumatic Eyes General: appearance normal, both eyes and all related structures Pupils: Equal, round and reactive pupils present EOM: EOMs intact bilaterally Neck Neck: Yes supple and No lymphadenopathy Thyroid: Thyroid normal Lymphatic: no lymphadenopathy noted Resp Effort & Inspection: normal respiratory effort and able to speak in complete sentences Auscultation: clear to auscultation bilaterally Cardio Heart sounds: S1 normal heart sound present and S2 normal heart sound present GI Palpation (GI): Soft to palpation and nontender Auscultation: normal bowel sounds General: Yes no CVA tenderness Back/Spine/Pelvis Back: no CVA tenderness Skin Other: dispigmented scaly rash both soles much better than before, also on the palm of both hands General skin exam: elasticity normal and turgor normal Neuro General: patient oriented x3 and gait normal Cranial nerves: Yes Equal, round and reactive pupils present Speech: No Abnormal speech present Sensory Exam: No Sensory deficit (Neuro) Coordination: tandem gait normal and Romberg test negative Extrem General: Yes normal exam except as noted and No edema Assessment and Plan Assessment & Plan (1) Encounter for general adult medical examination with abnormal findings: Code(s): Z00.01 - Encounter for general adult medical examination with abnormal findings (2) Rash: Code(s): R21 - Rash and other nonspecific skin eruption (3) Other specified hypothyroidism: Code(s): E03.8 - Other specified hypothyroidism (4) Lipid disorder: Code(s): E78.9 - Disorder of lipoprotein metabolism, unspecified (5) Acid reflux: Code(s): K21.9 - Gastro-esophageal reflux disease without esophagitis Qualifiers: Esophagitis presence: without esophagitis Qualified Code(s): K21.9 - Gastro-esophageal reflux disease without esophagitis (6) Obesity due to excess calories: Code(s): E66.09 - Other obesity due to excess calories Qualifiers: Body mass index: BMI 30.0-30.9 Obesity classification: adult class 1 (BMI 30 - 34.9) Serious obesity comorbidity presence: without serious comorbidity Qualified Code(s): E66.09 - Other obesity due to excess calories; Z68.30 - Body mass index [BMI] 30.0-30.9, adult Plan Patient is a 58-year-old female came in today for physical exam and follow-up appointment Patient had labs done recently her TSH level came back at 0.01, she is currently on 150 mcg of levothyroxine I am changing it to 125 mcg She is taking [id number] thyroid supplement which has IUD minute, instructed patient to stop taking that. Her triglyceride levels are 514, she was taking simvastatin which started causing brain fog so she stopped I am starting her on fenofibrate, patient is to repeat labs fasting in 2 months I ordered Cologuard for the patient last year she never sent the sample back I am ordering it again She is also due for mammogram Does not want to see OBGYN Patient have developed chronic dermatosis with palm and sole of feet She is using steroid cream which is helping, however she has not seen Dermatology, referral placed Asthma is stable with Symbicort Patient is to return in 3 months for follow-up appointment in 1 year physical exam Orders: Orders MM tomosynthesis screening BI Today Z12.31 - Encounter for screening mammogram for malignant neoplasm of breast Comprehensive [place]. Panel Fast 2 Months E03.8 - Other specified hypothyroidism, E78.9 - Disorder of lipoprotein metabolism, unspecified Lipid Panel 2 Months E03.8 - Other specified hypothyroidism, E78.9 - Disorder of lipoprotein metabolism, unspecified TSH reflex Free T4 2 Months E03.8 - Other specified hypothyroidism Referrals Cologuard Test Z12.11 - Encounter for screening for malignant neoplasm of colon, Z12.12 - Encounter for screening for malignant neoplasm of rectum Dermatology Referral R21 - Rash and other nonspecific skin eruption Medications: New fenofibrate nanocrystallized 145 mg PO DAILY 90 tabs 0RF Changed From Synthroid (levothyroxine) 150 mcg PO DAILY 90 tabs 0RF NS To levothyroxine 125 mcg PO DAILY 90 tabs 0RF Coding Level of Care Code Est Pt Level 4 (22592) Est Pt Prev Care 40-64y(72671) Diagnoses Encounter for general adult medical examination with abnormal findings Z00.01 Rash R21 Other specified hypothyroidism E03.8 Lipid disorder E78.9 Gastroesophageal reflux disease without esophagitis K21.9 Esophagitis presence: without esophagitis Class 1 obesity due to excess calories without serious comorbidity with body mass index (BMI) of 30.0 to 30.9 in adult E66.09; Z68.30 Body mass index: BMI 30.0-30.9 Obesity classification: adult class 1 (BMI 30 - 34.9) Serious obesity comorbidity presence: without serious comorbidity Additional Codes NOREEN-7 Assessment Billing - NOREEN-7 Assessment Tool: NOREEN-7 Assessment 22022 ([id number])
== END 2023-12-31 14:59 | disposition home or self-care (01) ==
PROVIDERS: PCP Internal Medicine; Visit Provider Internal Medicine
DX: Z00.00 Encounter for general adult medical examination without abnormal findings (principal); R21 Rash and other nonspecific skin eruption; E66.09 Other obesity due to excess calories; Z68.30 Body mass index [BMI] 30.0-30.9, adult; E03.8 Other specified hypothyroidism; E78.9 Disorder of lipoprotein metabolism, unspecified; K21.9 Gastro-esophageal reflux disease without esophagitis

== ENCOUNTER → 2023-12-31 14:39 | Outpatient (BNVA) | payer MEDICARE, SELFPAY | PROVIDERS: PCP Internal Medicine; Visit Provider Internal Medicine | DX: Z00.01 Encounter for general adult medical examination with abnormal findings (principal); R21 Rash and other nonspecific skin eruption; E03.8 Other specified hypothyroidism; E78.9 Disorder of lipoprotein metabolism, unspecified; K21.9 Gastro-esophageal reflux disease without esophagitis; E66.09 Other obesity due to excess calories; Z68.30 Body mass index [BMI] 30.0-30.9, adult; Z71.3 Dietary counseling and surveillance | CPT/HCPCS: 96127; 99212; 99396 ==

== ENCOUNTER 2024-02-03 07:55 | Outpatient (REF) | payer MEDICARE, SELFPAY ==
--- NOTE | ~2024-02-03 | MM_ITS ---
EXAMINATION: MM SCREENING DIGITAL BREAST TOMOSYNTHESIS, BILATERAL CLINICAL INFORMATION: Screening. Asymptomatic. COMPARISON: Mammography: Comparison is made with available priors TECHNIQUE: Digital breast mammography with tomosynthesis is performed in both the craniocaudal and mediolateral oblique views along with computer-aided detection (CAD). FINDINGS: There are scattered areas of fibroglandular density (ACR BI-RADS breast composition Category b). There are no significant masses, abnormal calcifications, or other abnormalities. MM/MM tomosynthesis screening BI IMPRESSION: No mammographic evidence of malignancy. ASSESSMENT: BI-RADS BI-RADS 1 - Negative RECOMMENDATION: Routine annual mammography screening. 1 year F/U This examination should not preclude the clinical evaluation of a suspicious palpable abnormality. This patient's information was entered into a reminder system with a target due date for their next mammogram. Electronically signed by: Desiree Porter DO 02/11/2024 10:29 AM [facility]
== END 2024-02-03 07:56 | disposition home or self-care (01) ==
LOC: HO.MAMMO 07:55
PROVIDERS: PCP Internal Medicine; Visit Provider Internal Medicine
DX: Z12.31 Encounter for screening mammogram for malignant neoplasm of breast (principal)
CPT/HCPCS: 77063; 77067

== ENCOUNTER → 2024-02-03 08:00 | Outpatient (BNV) | payer MEDICARE, SELFPAY | PROVIDERS: PCP Internal Medicine; Visit Provider Internal Medicine | DX: Z12.31 Encounter for screening mammogram for malignant neoplasm of breast (principal) | CPT/HCPCS: 77063; 77067 ==

== ENCOUNTER 2024-03-24 10:27 | Outpatient (REF) | payer MEDICARE, SELFPAY ==
[2024-03-24 14:00] LABS: Alanine Aminotransferase 30 U/L (0-31); Albumin Level 3.9 g/dL (3.5-5.0); Alkaline Phosphatase 86 U/L (39-117); Anion Gap 9 (12-20); Aspartate Amino Transferase 27 U/L (5-31); Bilirubin Total 0.3 mg/dL (0.0-1.0); Blood Urea Nitrogen 17 mg/dL (9-16); Calcium 8.8 mg/dL (8.4-10.2); Carbon Dioxide 27 mmol/L (22-29); Chloride 111 mmol/L (96-108); Cholesterol 245 mg/dL (<200); Estimated Glomerular Filt Rate > 60; Glucose Fasting 107 mg/dL (60-99); HDL Cholesterol 47 mg/dL (>40); LDL Cholesterol Calculated 166 mg/dL (<100); Potassium 4.4 mmol/L (3.3-5.1); Sodium 143 mmol/L (135-145); Total Protein 6.8 g/dL (6.5-8.0); Triglycerides 164 mg/dL (<150)
[2024-03-24 14:06] LABS: TSH reflex Free T4 3.32 uIU/mL (0.32-4.0)
== END 2024-03-24 10:28 | disposition home or self-care (01) ==
LOC: HO.HMGCLDS 10:27
PROVIDERS: PCP Internal Medicine; Visit Provider Internal Medicine
DX: E78.9 Disorder of lipoprotein metabolism, unspecified (principal); E03.8 Other specified hypothyroidism
CPT/HCPCS: 36415; 80053; 80061; 84443

== ENCOUNTER 2024-03-26 13:29 | Outpatient (AMB) | payer MEDICARE, SELFPAY ==
[2024-03-26 13:31] VITALS: BP 122/76; PULSE 70; O2SAT 98; BMI 30.2
--- NOTE | 2024-03-26 13:31 | A.OFFPC_ITS ---
Vital Signs 03/26/24 13:31 Height 5 ft 5 in Weight 181 lb 6 oz BMI 30.2 BP 122/76 Blood Pressure Location Rt brachial Position Sitting Pulse 70 Pulse Source Pulse Oximeter Pulse Oximetry (%) 98 Oxygen Delivery Method Room Air Intake Visit Reasons: 3 month follow up Allergies Penicillins [PENICILLINS] Allergy (Severe, Verified 03/26/24 13:31) ANAPHYLAXIS codeine Allergy (Unknown, Verified 03/26/24 13:31) dizziness, hives morphine Allergy (Unknown, Verified 03/26/24 13:31) Unknown penicillin V Allergy (Unknown, Verified 03/26/24 13:31) anaphylaxis Odutvhm-VKU-VkW Reductase Inhibitor Adverse Reaction (Mild, Verified 03/26/24 13:49) foginess in head Medication List - Last Reconciled 03/26/24 by Evita Vyas MD budesonide-formoterol 160-4.5 mcg/actuation (Symbicort) 2 puffs inhalation BID 30 days clotrimazole-betamethasone 1-0.05 % 1 appl topical ONCE 30 days fenofibrate nanocrystallized 145 mg PO DAILY ProAir RespiClick 90 mcg/actuation (albuterol sulfate) 1 inh inhalation Q4-6H PRN 30 days NS Synthroid (levothyroxine) 125 mcg PO DAILY NS Tobacco use date assessed: 03/26/24 Dental Screening Dental Screen Date: 03/26/24 Did you have a dental visit in the last 12 months?: Yes Did you have a dental problem in the last 6 months where you did not have access to dental care?: No Was dental information given to patient?: Patient has dentist HPI 3 month follow up HPI Details Follow-up appointment - The patient is a 59-year-old female pr esenting with medication management and follow-up care. - Has asthma, managed with Symbicort. Us es inhaler daily. No current issues with breathing, but difficulties obtaining refills reported. - Presents with dyslipidemia. Current me dications include Fenofibrate. Statins previously used but discontinued due to muscle aches and cognitive issues. LDL cholesterol remains high at 166 despite diet modifications; triglycerides reduced from 500 to 164. - Hypothyroidism managed with Synthroid 175 micrograms daily. Currently stabilized with efforts towards lifestyle modifications. - Prediabetes present with fasting blood sugar slightly elevated at 107. Continuing monitoring. Problem List - asthma - Dyslipidemia - Prediabetes - Hypothyroidism - obesity Medications - Symbicort for COPD - Fenofibrate for dyslipidemia - Synthroid 175 micrograms for hypothyro idism Diagnostic results - Kidney function tests: Normal - Electrolytes: Normal - CBC (December): No anemia - Fasting blood glucose: 107 mg/dL, addie cative of prediabetes - LDL Cholesterol: 166 mg/dL - Triglycerides: 164 mg/dL, reduced from 500 mg/dL Review of Systems - Respiratory: Denies shortness of breat h or chest pains. - Endocrine: Denies new symptoms related to thyroid. - Musculoskeletal: Prior history of musc le aches related to statin use, resolved. - Gastrointestinal: Reports potential fo r diarrhea with fatty meal due to new medication potential. General: No fever no chills neurological: No headaches no dizziness ear nose throat: No sore throat no hearing difficulty no ear pain cardiovascular: No syncope, no chest pain, no palpitations gastrointestinal: No nausea vomiting or diarrhea endocrine: No polyuria polydipsia no heat intolerance genitourinary: No dysuria skin: No new complaints Physical Exam general: No acute distress HEENT: No acute findings neck: Supple respiratory system: Able to talk in full sentences, no audible wheeze no stridor cardiovascular: S1-S2 gastrointestinal: No pain extremities: No new findings BOAT DETAILER: Alert awake oriented x3 motor sensory intact skin: Normal turgor Patient Instructions - Continue Symbicort twice daily for [employer] management. - Fenofibrate to be continued for choles terol control. - Prescribed Zetia if covered by insuran ce to help manage cholesterol. - Continue Synthroid at current dose for hypothyroidism. - Maintain current diet and increase att ention to low-fat foods to manage cholesterol and prediabetes. - Avoid fried foods and manage exercise regimen to help with lipid levels. - Begin aevk-x-ouvmq injection discussio n with skin toggler if needed in the future for cholesterol control. - Receive flu vaccine during visit. - Follow up in [facility] months with [facility] labs prior to the appointment. [facility] Medical History Rash IBS (irritable bowel syndrome) Psoriasis Other specified hypothyroidism Asthma, mild Lipid disorder Surgical History History of hysteroscopy History of colonoscopy History of wisdom tooth extraction History of appendectomy Ovarian cyst Family History Father Stomach cancer Mother Bone cancer HTN (hypertension) Tumor Sister Uterine cancer Daughter History of CVA (cerebrovascular accident) Son Cancer Brother No problems noted. Brother No problems noted. Social History Housing: House Patient Tobacco Use Status: Never used Tobacco e-Cigarette/Vaping Use: Never Used service: No Current occupational status: disabled Cognitive needs: No Hearing needs: No Vision needs: No Questionnaire Thrive Questionnaire Date Thrive assessed: 03/26/24 I am a: Patient What is your living situation today?: I have a steady place to live Within the past 12 months, did the food you bought not last and you didn't have the money to get more?: Sometimes True Within the past 12 months, did you worry whether your food would run out before you got money to buy more?: Sometimes True Do you have trouble paying for medicines?: I choose not to answer this question Do you have trouble getting transportation to medical appointments?: I choose not to answer this question Do you have trouble paying your heating and electricity bill?: I choose not to answer this question Do you have trouble taking care of your child, family member or friend?: I choose not to answer this question Do you have trouble with day-to-day activities such as bathing, preparing meals, shopping, managing finances, etc.?: I choose not to answer this question Are you currently unemployed and looking for a job?: I choose not to answer this question Are you interested in more education?: I choose not to answer this question Please select the resources that you would like help with: None Currently or been in a relationship where the following occur: I choose not to answer THRIVE Score: 2 AUDIT C Alcohol Use Questionnaire (AUDIT-C) 1. How often do you have a drink containing alcohol?: 2-4 times a month 2. How many drinks containing alcohol do you have on a typical day when you are drinking?: 1 or 2 3. How often do you have six or more drinks on one occasion?: Monthly Total Score: 4 Score Reviewed/Action Taken: Yes NOREEN-7 AMB Questionnaire NOREEN-7 Date NOREEN - 7 assessed: 12/31/23 Source: Developed by Drs. Dieter Erwin, Bernice Myles, Moises Gonzalez and colleagues, with an educational adrián from [employer]. Physical exam (Primary Care) Vital Signs: Last Vital Signs Pulse 70 03/26/24 13:31 BP 122/76 03/26/24 13:31 Pulse Ox 98 03/26/24 13:31 Oxygen Delivery Method Room Air 03/26/24 13:31 BMI result Body Mass Index 30.2 Tobacco/Smoking Status: Tobacco use Status Tobacco use date assessed 03/26/24 03/26/24 13:32 Patient Tobacco Use Status Never used Tobacco 03/26/24 13:32 e-Cigarette/Vaping Use Never Used 03/26/24 13:32 Thrive Assessment: Date of Thrive Assessment Date Thrive assessed 03/26/24 03/26/24 13:40 Currently or been in a relationship where the following occur: I choose not to answer Office Procedures Flu Questionnaire Does the patient have a severe egg allergy?: No Does the patient have severe life threatening allergies?: No Does the patient have a fever or illness today?: No Has the patient ever had Guillain-[place] Syndrome?: No Has the patient ever had any past reaction to a flu shot?: No Immunizations Fluarix Triv [id number] (PF) 45 mcg (15 mcg x 3)/0.5 mL IM syringe Performing Provider: Evita Vyas MD Performing Location: [facility] Administered by: Herber Mancini CMA on 03/26/24 14:02 Dose Route Admin Location Dispensed Lot Number Expiration Date [facility] Racking Technician 0.5 mL IM Right Deltoid 0.5 mL [id number] 10/04/24 [id number] [id number] - [employer] VIS Given Date VIS Provided VIS Publication Date 03/26/24 Single Vaccine 20 Eligibility Eligibility Date Funding Source Not [facility] Eligible 03/26/24 Private Coding Level of Care Code Est Pt Level 4 (53563) Complex EM visit Add On G2211 Diagnoses Lipid disorder E78.9 Other specified hypothyroidism E03.8 Class 1 obesity due to excess calories without serious comorbidity with body mass index (BMI) of 30.0 to 30.9 in adult E66.09; Z68.30 Body mass index: BMI 30.0-30.9 Obesity classification: adult class 1 (BMI 30 - 34.9) Serious obesity comorbidity presence: without serious comorbidity Moderate persistent asthma without complication J45.40 Asthma complication type: uncomplicated High triglycerides E78.1 Prediabetes R73.03 Assessment & Plan Assessment & Plan (1) Lipid disorder: Code(s): E78.9 - Disorder of lipoprotein metabolism, unspecified Category: Medical (2) Other specified hypothyroidism: Code(s): E03.8 - Other specified hypothyroidism Category: Medical (3) Obesity due to excess calories: Code(s): E66.09 - Other obesity due to excess calories Category: Medical Qualifiers: Body mass index: BMI 30.0-30.9 Obesity classification: adult class 1 (BMI 30 - 34.9) Serious obesity comorbidity presence: without serious comorbidity Qualified Code(s): E66.09 - Other obesity due to excess calories; Z68.30 - Body mass index [BMI] 30.0-30.9, adult (4) Asthma, moderate persistent: Code(s): J45.40 - Moderate persistent asthma, uncomplicated Category: Medical Qualifiers: Asthma complication type: uncomplicated Qualified Code(s): J45.40 - Moderate persistent asthma, uncomplicated (5) High triglycerides: Code(s): E78.1 - Pure hyperglyceridemia Category: Medical (6) Prediabetes: Code(s): R73.03 - Prediabetes Category: Medical Plan Follow-up appointment - The patient is a 59-year-old female presenting with medication management and follow-up care. - Has asthma, managed with Symbicort. Uses inhaler daily. No current issues with breathing, but difficulties obtaining refills reported. - Presents with dyslipidemia. Current medications include Fenofibrate. Statins previously used but discontinued due to muscle aches and cognitive issues. LDL cholesterol remains high at 166 despite diet modifications; triglycerides reduced from 500 to 164. - Hypothyroidism managed with Synthroid 175 micrograms daily. Currently stab ilized with efforts towards lifestyle modifications. - Prediabetes present with fasting blood sugar slightly elevated at 107. Continuing monitoring. Problem List - asthma - Dyslipidemia - Prediabetes - Hypothyroidism - obesity Medications - Symbicort for COPD - Fenofibrate for dyslipidemia - Synthroid 175 micrograms for hypothyroidism Diagnostic results - Kidney function tests: Normal - Electrolytes: Normal - CBC (December): No anemia - Fasting blood glucose: 107 mg/dL, indicative of prediabetes - LDL Cholesterol: 166 mg/dL - Triglycerides: 164 mg/dL, reduced from 500 mg/dL Review of Systems - Respiratory: Denies shortness of breath or chest pains. - Endocrine: Denies new symptoms related to thyroid. - Musculoskeletal: Prior history of muscle aches related to statin use, resolved. - Gastrointestinal: Reports potential for diarrhea with fatty meal due to new medication potential. General: No fever no chills neurological: No headaches no dizziness ear nose throat: No sore throat no hearing difficulty no ear pain cardiovascular: No syncope, no chest pain, no palpitations gastrointestinal: No nausea vomiting or diarrhea endocrine: No polyuria polydipsia no heat intolerance genitourinary: No dysuria skin: No new complaints Physical Exam general: No acute distress HEENT: No acute findings neck: Supple respiratory system: Able to talk in full sentences, no audible wheeze no stridor cardiovascular: S1-S2 gastrointestinal: No pain extremities: No new findings BOAT DETAILER: Alert awake oriented x3 motor sensory intact skin: Normal turgor Patient Instructions - Continue Symbicort twice daily for COPD management. - Fenofibrate to be continued for cholesterol control. - Prescribed Zetia if covered by insurance to help manage cholesterol. - Continue Synthroid at current dose for hypothyroidism. - Maintain current diet and increase attention to low-fat foods to manage cholesterol and prediabetes. - Avoid fried foods and manage exercise regimen to help with lipid levels. - Begin afbh-k-pziuc injection discussion with skin toggler if needed in the future for cholesterol control. - Receive flu vaccine during visit. - Follow up in four months with necessary labs prior to the appointment. Orders: Orders Influenza [id number] Immunization Today Z23 - Encounter for immunization Medications: New ezetimibe 10 mg PO DAILY 90 tabs 1RF 90 days E78.9 - Disorder of lipoprotein metabolism, unspecified Refilled budesonide-formoterol 160-4.5 mcg/actuation (Symbicort) 2 puffs inhalation BID 10.2 grams 3RF 30 days J45.909 - Unspecified asthma, uncomplicated
== END 2024-03-26 14:03 | disposition home or self-care (01) ==
PROVIDERS: PCP Internal Medicine; Visit Provider Internal Medicine
DX: E78.9 Disorder of lipoprotein metabolism, unspecified (principal); E03.8 Other specified hypothyroidism; E66.09 Other obesity due to excess calories; Z68.30 Body mass index [BMI] 30.0-30.9, adult; J45.40 Moderate persistent asthma, uncomplicated; E78.1 Pure hyperglyceridemia; R73.03 Prediabetes; Z23 Encounter for immunization

== ENCOUNTER → 2024-03-26 13:29 | Outpatient (BNVA) | payer MEDICARE, SELFPAY | PROVIDERS: PCP Internal Medicine; Visit Provider Internal Medicine | DX: Z23 Encounter for immunization (principal); E78.9 Disorder of lipoprotein metabolism, unspecified; E03.8 Other specified hypothyroidism; E66.09 Other obesity due to excess calories; Z68.30 Body mass index [BMI] 30.0-30.9, adult; J45.40 Moderate persistent asthma, uncomplicated; E78.1 Pure hyperglyceridemia; R73.03 Prediabetes; Z71.3 Dietary counseling and surveillance | CPT/HCPCS: 90471; 90656; 99212 ==

== ENCOUNTER 2024-07-27 13:40 | Outpatient (REF) | payer MEDICARE, SELFPAY ==
[2024-07-27 16:10] LABS: MANUAL DIFF FLAG NO
[2024-07-27 16:25] LABS: Basophils Absolute Auto 0.1 X10*3/uL (0.0-0.2); Basophils Percent Auto 0.6 % (0-2); Eosinophils Absolute Auto 0.4 X10*3/uL (0.0-0.4); Eosinophils Percent Auto 5.2 % (0-4); Hematocrit 42.7 % (37.0-47.0); Hemoglobin 14.1 g/dl (12.0-16.0); Imm Gran Abs Auto 0.02 X10*3/uL (0.00-0.03); Imm Gran Pct Auto 0.3 % (0.0-0.4); Lymphocytes Absolute Auto 2.3 X10*3/uL (1.2-4.9); Lymphocytes Percent Auto 29.4 % (20-40); Mean Corpuscular Hemoglobin 32.6 pg (27.0-33.0); Mean Corpuscular Volume 98.8 fL (80.0-98.0); Mean Platelet Volume 11.5 fL (9.4-12.3); Monocytes Absolute Auto 0.5 X10*3/uL (0.1-1.2); Monocytes Percent Auto 6.7 % (2-11); Neutrophils Absolute Auto 4.5 x10*3/uL (2.0-8.3); Neutrophils Percent Auto 57.8 % (45-73); Platelet Count 254 X10*3/uL (160-400); Red Blood Count 4.32 X10*6/uL (4.20-5.50); Red Cell Distribution Width 12.1 % (11.0-16.0); White Blood Count 7.9 X10*3/uL (4.8-10.8)
[2024-07-27 16:36] LABS: Estimated Average Glucose 105 mg/dL; Hemoglobin A1c % 5.3 % (<6.0); Total Hemoglobin (HGBA1C) 3641.1364 umol/L
[2024-07-27 17:01] LABS: Vitamin B12 352 pg/mL (200-900)
[2024-07-27 20:00] LABS: Alanine Aminotransferase 26 U/L (0-31); Albumin Level 3.9 g/dL (3.5-5.0); Anion Gap 11 (12-20); Aspartate Amino Transferase 25 U/L (5-31); Bilirubin Total 0.4 mg/dL (0.0-1.0); Blood Urea Nitrogen 15 mg/dL (9-16); Calcium 9.1 mg/dL (8.4-10.2); Carbon Dioxide 25 mmol/L (22-29); Chloride 109 mmol/L (96-108); Estimated Glomerular Filt Rate > 60; Glucose Random 107 mg/dL (60-115); Potassium 3.9 mmol/L (3.3-5.1); Sodium 141 mmol/L (135-145); Total Protein 6.7 g/dL (6.5-8.0)
[2024-07-27 20:18] LABS: Alkaline Phosphatase 86 U/L (39-117); TSH reflex Free T4 1.84 uIU/mL (0.32-4.0)
[2024-07-28 23:39] LABS: LDL Cholesterol Direct 157 mg/dL (<100)
== END 2024-07-27 13:41 | disposition home or self-care (01) ==
LOC: HO.HMGCLDS 13:40
PROVIDERS: PCP Internal Medicine; Visit Provider Internal Medicine
DX: R41.3 Other amnesia (principal); R73.03 Prediabetes; J45.40 Moderate persistent asthma, uncomplicated; E03.8 Other specified hypothyroidism; E78.9 Disorder of lipoprotein metabolism, unspecified; Z79.899 Other long term (current) drug therapy
CPT/HCPCS: 36415; 80053; 82607; 83036; 83721; 84443; 85025; 96127; 99212

== ENCOUNTER 2024-07-27 13:40 | Outpatient (AMB) | payer MEDICARE, SELFPAY ==
--- NOTE | 2024-07-27 13:44 | A.OFFPC_ITS ---
Vital Signs 07/27/24 13:45 Height 5 ft 5 in Weight 179 lb BMI 29.8 BP 116/80 Blood Pressure Location Rt brachial Position Sitting Respiration 16 Pulse 68 Pulse Source Pulse Oximeter Temp 97.8 F Temp Source Oral Pulse Oximetry (%) 97 Oxygen Delivery Method Room Air Intake Visit Reasons: 4 month follow up Allergies Penicillins [PENICILLINS] Allergy (Severe, Verified 07/27/24 13:48) ANAPHYLAXIS codeine Allergy (Unknown, Verified 07/27/24 13:48) dizziness, hives morphine Allergy (Unknown, Verified 07/27/24 13:48) Unknown penicillin V Allergy (Unknown, Verified 07/27/24 13:48) anaphylaxis [id number] Reductase Inhibitor Adverse Reaction (Mild, Verified 07/27/24 13:48) foginess in head Medication List - Last Reconciled 07/27/24 by Evita Vyas MD budesonide-formoterol 160-4.5 mcg/actuation (Symbicort) 2 puffs inhalation BID 30 days clotrimazole-betamethasone 1-0.05 % 1 appl topical ONCE 30 days ezetimibe 10 mg PO DAILY 90 days fenofibrate nanocrystallized 145 mg PO DAILY ProAir RespiClick 90 mcg/actuation (albuterol sulfate) 1 inh inhalation Q4-6H PRN 30 days NS Synthroid (levothyroxine) 125 mcg PO DAILY NS Tobacco use date assessed: 07/27/24 Dental Screening Dental Screen Date: 07/27/24 Did you have a dental visit in the last 12 months?: No Did you have a dental problem in the last 6 months where you did not have access to dental care?: No Was dental information given to patient?: Patient has dentist HPI 4 month follow up HPI Details History - The patient is a 59 year old female pr esenting with memory impairment. patient has h/o hypothyroid, lipid disorder, and asthma - The patient reports experiencing episo edwin of forgetfulness, describing moments where she fails to remember taking a specific exit while driving despite having the instructions on her GPS. - She describes a foggy feeling that o ccurs intermittently. - The symptoms have been persistent, alt alek there is no specific date of onset mentioned. - The severity of the forgetfulness has led her to use sticky notes on her dashboard as reminders and her monitors her location via GPS for safety during travel. - There is a notable family history of A lzheimer's disease, with the patient's mother and sister having been affected in their early 50s. The patient's mother was hospitalized and later due to memory-related mishaps. - The patient denies any confirmatory ca use for the memory impairment but has b een advised to seek neurologic evaluation. Medications - Symbicort for asthma control - Zetia for dyslipidemia - Fenofibrate for lipids - Synthroid 125 mg for hypothyroidism Problem List - Memory Impairment - Asthma - Dyslipidemia - Hypothyroidism - Family History of Alzheimer's Disease Diagnostic results - Labs indicate normal thyroid function from previous testing. Patient Instructions - Contact a neurologist for evaluation a s referred. - Have the prescribed blood work done to day as it was ordered as non-fasting. - Continue current medication regimen. - Attend the follow-up appointment sched elliott in December. Review of Systems General: No fever no chills neurological: No headaches no dizziness ear nose throat: No sore throat no hearing difficulty no ear pain cardiovascular: No syncope, no chest pain, no palpitations gastrointestinal: No nausea vomiting or diarrhea endocrine: No polyuria polydipsia no heat intolerance genitourinary: No dysuria skin: No new complaints Physical Exam general: No acute distress HEENT: No acute findings neck: Supple respiratory system: Able to talk in full sentences, no audible wheeze, no stridor cardiovascular: S1-S2, RRR gastrointestinal: No pain extremities: No new findings, no swelling of ankles [employer]: Alert, awake, oriented x3, motor sensory intact skin: Normal turgor PFSH Medical History Rash IBS (irritable bowel syndrome) Psoriasis Other specified hypothyroidism Asthma, mild Lipid disorder Surgical History History of hysteroscopy History of colonoscopy History of wisdom tooth extraction History of appendectomy Ovarian cyst Family History Father Stomach cancer Mother Bone cancer HTN (hypertension) Tumor Sister Uterine cancer Daughter History of CVA (cerebrovascular accident) Son Cancer Brother No problems noted. Brother No problems noted. Social History Housing: House Patient Tobacco Use Status: Never used Tobacco e-Cigarette/Vaping Use: Never Used service: No Current occupational status: disabled Cognitive needs: No Hearing needs: No Vision needs: No Questionnaire PHQ-9 Over the last 2 weeks, how often have you been bothered by any of the following problems? 1. Little interest or pleasure in doing things: not at all 2. Feeling down, depressed, or hopeless: more than half the days 3. Trouble falling or staying asleep, or sleeping too much: not at all 4. Feeling tired or having little energy: nearly every day 5. Poor appetite or overeating: not at all 6. Feeling bad about yourself - or that you are a failure or have let yourself or your family down: not at all 7. Trouble concentrating on things, such as reading the newspaper or watching television: nearly every day 8. Moving or speaking so slowly that other people could have noticed. Or the opposite - being so fidgety or restless that you have been moving around a lot more than usual: not at all 9. Thoughts that you would be better off or of hurting yourself in some way: not at all Total score: 8 Depression Screening Interpretation: Positive Depression Screening Follow-up: Declines treatment Depression Screening Done: Yes 54893 - PHQ-9 Billing: Yes Source: Developed by Drs. Dieter Erwin, Bernice Myles, Moises Gonzalez and colleagues, with an educational adrián from [employer]. Thrive Questionnaire Date Thrive assessed: 03/26/24 I am a: Patient What is your living situation today?: I have a steady place to live Within the past 12 months, did the food you bought not last and you didn't have the money to get more?: Sometimes True Within the past 12 months, did you worry whether your food would run out before you got money to buy more?: Sometimes True Do you have trouble paying for medicines?: I choose not to answer this question Do you have trouble getting transportation to medical appointments?: I choose not to answer this question Do you have trouble paying your heating and electricity bill?: I choose not to answer this question Do you have trouble taking care of your child, family member or friend?: I choose not to answer this question Do you have trouble with day-to-day activities such as bathing, preparing meals, shopping, managing finances, etc.?: I choose not to answer this question Are you currently unemployed and looking for a job?: I choose not to answer this question Are you interested in more education?: I choose not to answer this question Please select the resources that you would like help with: None Currently or been in a relationship where the following occur: I choose not to answer THRIVE Score: 2 AUDIT C Alcohol Use Questionnaire (AUDIT-C) 1. How often do you have a drink containing alcohol?: Monthly or less 2. How many drinks containing alcohol do you have on a typical day when you are drinking?: 1 or 2 3. How often do you have six or more drinks on one occasion?: Never Total Score: 1 NOREEN-7 AMB Questionnaire NOREEN-7 Date NOREEN - 7 assessed: 12/31/23 Feeling nervous, anxious, or on edge: 2 = More than half the days Not being able to stop or control worryin = Nearly every day Worrying too much about different things: 3 = Nearly every day Trouble relaxin = Nearly every day Being so restless that it is hard to sit still: 3 = Nearly every day Becoming easily annoyed or irritable: 0 = Not at all Feeling afraid as if something awful might happen: 0 = Not at all Total NOREEN-7 score (0-4 normal; 5-9 mild; 10-14 moderate; 15-21 severe): 14 Source: Developed by Drs. Dieter Erwin, Bernice Myles, Moises Gonzalez and colleagues, with an educational adrián from [employer]. Physical exam (Primary Care) Vital Signs: Last Vital Signs Temp 97.8 F 07/27/24 13:45 Pulse 68 07/27/24 13:45 Resp 16 07/27/24 13:45 BP 116/80 07/27/24 13:45 Pulse Ox 97 07/27/24 13:45 Oxygen Delivery Method Room Air 07/27/24 13:45 BMI result Body Mass Index 29.8 Tobacco/Smoking Status: Tobacco use Status Tobacco use date assessed 07/27/24 07/27/24 13:49 Patient Tobacco Use Status Never used Tobacco 07/27/24 13:45 e-Cigarette/Vaping Use Never Used 07/27/24 13:45 PHQ-9: PHQ-9 Score PHQ-9: Total score 8 07/27/24 13:45 Depression Screening Interpretation: Positive Depression Screening Follow-up: Declines treatment Thrive Assessment: Date of Thrive Assessment Date Thrive assessed 03/26/24 07/27/24 13:45 Currently or been in a relationship where the following occur: I choose not to answer Coding Level of Care Code Est Pt Level 4 (43251) Diagnoses Memory changes R41.3 Prediabetes R73.03 Moderate persistent asthma without complication J45.40 Asthma complication type: uncomplicated Other specified hypothyroidism E03.8 Lipid disorder E78.9 Additional Codes PHQ-9 - 61704 - PHQ-9 Billing: Yes ([id number]) Assessment & Plan Assessment & Plan (1) Memory changes: Code(s): R41.3 - Other amnesia Category: Medical (2) Prediabetes: Code(s): R73.03 - Prediabetes Category: Medical (3) Asthma, moderate persistent: Code(s): J45.40 - Moderate persistent asthma, uncomplicated Category: Medical Qualifiers: Asthma complication type: uncomplicated Qualified Code(s): J45.40 - Moderate persistent asthma, uncomplicated (4) Other specified hypothyroidism: Code(s): E03.8 - Other specified hypothyroidism Category: Medical (5) Lipid disorder: Code(s): E78.9 - Disorder of lipoprotein metabolism, unspecified Category: Medical Plan History - The patient is a 59 year old female presenting with memory impairment. patient has h/o hypothyroid, lipid disorder, and asthma - The patient reports experiencing episodes of forgetfulness, describing moments where she fails to remember taking a specific exit while driving despite having the instructions on her GPS. - She describes a foggy feeling that occurs intermittently. - The symptoms have been persistent, although there is no specific date of onset mentioned. - The severity of the forgetfulness has led her to use sticky notes on her dashboard as reminders and her monitors her location via GPS for safety during travel. - There is a notable family history of Alzheimer's disease, with the patient's mother and sister having been affected in their early 50s. The patient's mother was hospitalized and later due to memory-related mishaps. - The patient denies any confirmatory cause for the memory impairment but has been advised to seek neurologic evaluation. Medications - Symbicort for asthma control - Zetia for dyslipidemia - Fenofibrate for lipids - Synthroid 125 mg for hypothyroidism Problem List - Memory Impairment - Asthma - Dyslipidemia - Hypothyroidism - Family History of Alzheimer's Disease - Prediabetes Diagnostic results - Labs indicate normal thyroid function from previous testing. Patient Instructions - Contact a neurologist for evaluation as referred. - Have the prescribed blood work done today as it was ordered as non-fasting. - Continue current medication regimen. - Attend the follow-up appointment scheduled in December. Orders: Orders Comprehensive Met. Panel Today E03.8 - Other specified hypothyroidism, E78.9 - Disorder of lipoprotein metabolism, unspecified, J45.40 - Moderate persistent asthma, uncomplicated, R41.3 - Other amnesia, R73.03 - Prediabetes Comprehensive [place]. Panel Fast 5 Months E03.8 - Other specified hypothyroidism, E78.9 - Disorder of lipoprotein metabolism, unspecified, J45.40 - Moderate persistent asthma, uncomplicated, R41.3 - Other amnesia, R73.03 - Prediabetes Lipid Panel 5 Months E03.8 - Other specified hypothyroidism, E78.9 - Disorder of lipoprotein metabolism, unspecified, J45.40 - Moderate persistent asthma, uncomplicated, R41.3 - Other amnesia, R73.03 - Prediabetes Complete Blood Count Auto Diff Today E03.8 - Other specified hypothyroidism, E78.9 - Disorder of lipoprotein metabolism, unspecified, J45.40 - Moderate persistent asthma, uncomplicated, R41.3 - Other amnesia, R73.03 - Prediabetes LDL Cholesterol Direct Today E03.8 - Other specified hypothyroidism, E78.9 - Disorder of lipoprotein metabolism, unspecified, J45.40 - Moderate persistent asthma, uncomplicated, R41.3 - Other amnesia, R73.03 - Prediabetes TSH reflex Free T4 Today E03.8 - Other specified hypothyroidism, E78.9 - Disorder of lipoprotein metabolism, unspecified, J45.40 - Moderate persistent asthma, uncomplicated, R41.3 - Other amnesia, R73.03 - Prediabetes Hemoglobin A1c Today E03.8 - Other specified hypothyroidism, E78.9 - Disorder of lipoprotein metabolism, unspecified, J45.40 - Moderate persistent asthma, uncomplicated, R41.3 - Other amnesia, R73.03 - Prediabetes Vitamin B12 Today R41.3 - Other amnesia Hemoglobin A1c 5 Months E03.8 - Other specified hypothyroidism, E78.9 - Disorder of lipoprotein metabolism, unspecified, J45.40 - Moderate persistent asthma, uncomplicated, R41.3 - Other amnesia, R73.03 - Prediabetes Complete Blood Count Auto Diff 5 Months E03.8 - Other specified hypothyroidism, E78.9 - Disorder of lipoprotein metabolism, unspecified, J45.40 - Moderate persistent asthma, uncomplicated, R41.3 - Other amnesia, R73.03 - Prediabetes TSH reflex Free T4 5 Months E03.8 - Other specified hypothyroidism, E78.9 - Disorder of lipoprotein metabolism, unspecified, J45.40 - Moderate persistent asthma, uncomplicated, R41.3 - Other amnesia, R73.03 - Prediabetes Referrals Neurology Referral R41.3 - Other amnesia
[2024-07-27 13:45] VITALS: BP 116/80; PULSE 68; RESP 16; TEMP 36.6; O2SAT 97; BMI 29.8
== END 2024-07-27 14:33 | disposition home or self-care (01) ==
LOC: HO.HMCC 13:41
PROVIDERS: PCP Internal Medicine; Visit Provider Internal Medicine
DX: R41.3 Other amnesia (principal); R73.03 Prediabetes; J45.40 Moderate persistent asthma, uncomplicated; E03.8 Other specified hypothyroidism; E78.9 Disorder of lipoprotein metabolism, unspecified

== ENCOUNTER 2024-10-11 10:16 | Outpatient (AMB) | payer MEDICARE, SELFPAY ==
[2024-10-11 10:35] VITALS: BP 110/72; PULSE 78; TEMP 36.7; O2SAT 98; BMI 28.6
--- NOTE | 2024-10-11 10:35 | AM.OFFWIN_ITS ---
Intake Vital Signs 10/11/24 10:35 Height 5 ft 5 in Weight 172 lb BMI 28.6 BP 110/72 Blood Pressure Location Rt brachial Position Sitting Pulse 78 Pulse Source Pulse Oximeter Temp 98.1 F Temp Source Oral Pulse Oximetry (%) 98 Oxygen Delivery Method Room Air Intake Visit Reasons: EP Pneumonia, on abx, still having symptoms. Intake Note: presents with unresolved pneumonia, finished azithromycin this morning. c/o productive cough, sore throat w/o painful swallowing, headache, body aches, low abdominal cramping, dark urine Patient Tobacco Use Status: Never used Tobacco Allergies Penicillins (PENICILLINS) Allergy (Severe, Verified 10/11/24 10:37) ANAPHYLAXIS codeine Allergy (Unknown, Verified 10/11/24 10:37) dizziness, hives morphine Allergy (Unknown, Verified 10/11/24 10:37) Unknown penicillin V Allergy (Unknown, Verified 10/11/24 10:37) anaphylaxis Juecuzl-KQQ-EpE Reductase Inhibitor Adverse Reaction (Mild, Verified 10/11/24 10:37) foginess in head Do you need a note to return to daycare/school/sports/work: No HPI HPI Comments History of Present Illness Details History - The patient is a 59-year-old female pr esenting with pneumonia. - Symptoms began approximately two and a half weeks ago with a cough, chills, and fevers. - The patient attempted self-treatment w [facility] remedies and experienced persistent coughing. - On October 08, the patient felt faint wh ile driving and sought emergency care, where pneumonia was diagnosed via chest x-ray. - Treatment in the [place] ER included IV antibiotics and anti-inflammatory medication. - The patient has a history of asthma, w hich has not been problematic recently. - The patient has had cold sweats and in somnia. - She states that she had a tick bite be hind the ear which she lot maybe the cause of her symptoms. - She had labs done in the ER and is pavan ting for the results. - The patient reports a significant weig ht loss of 15 pounds in one week as she throws up after eating. - She denies fever or chills, CP, abd pa in, diarrhea, sick contacts, or travel. Physical Exam General: Cooperative, healthy appearing, comfortable but in acute distress due to cold sweats and exhaustion. Orientation/consciousness: Patient oriented x3 Limitations: No limitations Head: Normal to inspection, but patient reports a history of a tick behind the ear and facial swelling. Ears: Hearing grossly normal bilaterally, external ears normal and TM's normal bilaterally Nose: Normal external nose present, normal nares present, and no nasal discharge present. Face and sinus: Sinuses nontender to palpation, but patient reports facial swelling. Mouth: Normal oral and palatal mucosa present and moist mucous membranes noted. Throat: Tonsils normal. Uvula is midline. Posterior oropharynx with erythema and no exudates. Eyes: Appearance normal, both eyes and all related structures Neck: Normal visual inspection, full ROM. No lymphadenopathy noted. Respiratory: Clear to auscultation bilaterally, no w/r/r noted. No respiratory distress, not tachypneic, no tripod positioning and no use of accessory muscles. Cardiovascular: Regular rate and rhythm. Normal S1 and S2 Skin: No rashes or lesions noted, but patient reports facial swelling. Patient was informed and verbally consented to the use of an ambient scribe for clinic note documentation during this visit [facility] Medical History Rash IBS (irritable bowel syndrome) Psoriasis Other specified hypothyroidism Asthma, mild Lipid disorder Surgical History History of hysteroscopy History of colonoscopy History of wisdom tooth extraction History of appendectomy Ovarian cyst Family History Father Stomach cancer Mother Bone cancer HTN (hypertension) Tumor Sister Uterine cancer Daughter History of CVA (cerebrovascular accident) Son Cancer Brother No problems noted. Brother No problems noted. Social History Housing: House Patient Tobacco Use Status: Never used Tobacco e-Cigarette/Vaping Use: Never Used service: No Current occupational status: disabled Cognitive needs: No Hearing needs: No Vision needs: No Review of Systems Const All systems reviewed & are unremarkable except as noted in HPI and below Physical Exam Vital Signs: Last Vital Signs Temp 98.1 F 10/11/24 10:35 Pulse 78 10/11/24 10:35 BP 110/72 10/11/24 10:35 Pulse Ox 98 10/11/24 10:35 Oxygen Delivery Method Room Air 10/11/24 10:35 BMI result Body Mass Index 28.6 Results AMB Urinalysis, Automated UA Leukoctes 15 Hugo/uL Last Edit by Sandrita Mendoza MA on 10/11/24 11:01 UA Nitrite Negative Last Edit by Sandrita Mendoza MA on 10/11/24 11:01 UA Urobilinogen 1 mg/dL Last Edit by Sandrita Mendoza MA on 10/11/24 11:01 UA Protein 0 mg/dL Last Edit by Sandrita Mendoza MA on 10/11/24 11:01 UA pH 6.0 Last Edit by Sandrita Mendoza MA on 10/11/24 11:01 UA Blood 0 Edmundo/uL Last Edit by Sandrita Mendoza MA on 10/11/24 11:01 UA Specific [place] 1.030 Last Edit by Sandrita Mendoza MA on 10/11/24 11:0 1 UA Ketone Negative Last Edit by Sandrita Mendoza MA on 10/11/24 11:01 UA Bilirubin 1 mg/dL Last Edit by Sandrita Mendoza MA on 10/11/24 11:01 UA Glucose 0 mg/dL Last Edit by Sandrita Mendoza MA on 10/11/24 11:01 Results Reviewed Results Reviewed: Laboratory Last Values Urine pH (Auto) 6.0 10/11/24 10:54 Specific [place] (Auto) 1.030 10/11/24 10:54 Urine Protein (Auto) 0 mg/dL 10/11/24 10:54 Glucose (UA)(Auto) 0 mg/dL 10/11/24 10:54 Urine Ketones (Auto) Negative 10/11/24 10:54 Urine Blood (Auto) 0 Edmundo/uL 10/11/24 10:54 Urine Nitrite (Auto) Negative 10/11/24 10:54 Urine Bilirubin (Auto) 1 mg/dL 10/11/24 10:54 Urine Urobilinogen (Auto) 1 mg/dL 10/11/24 10:54 Leukocyte Esterase (Auto) 15 Hugo/uL 10/11/24 10:54 Assessment & Plan Assessment & Plan (1) Pneumonia: Code(s): J18.9 - Pneumonia, unspecified organism Qualifiers: Pneumonia type: due to unspecified organism Laterality: unspecified laterality Lung location: unspecified part of lung Qualified Code(s): J18.9 - Pneumonia, unspecified organism Plan Most likely pneumonia Plan - Reviewed her ER notes from 10/08 - Initiate a second antibiotic regimen to complement the Z-Gonzalo, targeting broader bacterial coverage. - Will add Levoquin for 5 days - Prescribe a five-day course of prednisone to manage asthma exacerbation. - Provide nebulizer treatment to alleviate respiratory symptoms. - Will refill her albuterol solution - Administer cough medicine to improve sleep quality. - VSS, pt well appearing Orders: Orders AMB Urinalysis Automated Today Z13.9 - Encounter for screening, unspecified Medications: New levofloxacin 750 mg PO Q24H 5 tabs 0RF benzonatate 100 mg PO bid-tid PRN 21 caps 0RF Cough 7 days albuterol sulfate 1.25 mg (3 mL) inhalation Q4-6H PRN 75 mL 0RF Shortness Of Breath Or Wheezing 7 days prednisone 40 mg (2 x 20 mg) PO DAILY 10 tabs 0RF 5 days Coding Level of Care Code Est Pt Level 4 (53170) Diagnoses Pneumonia due to infectious organism, unspecified laterality, unspecified part of lung J18.9 Pneumonia type: due to unspecified organism Laterality: unspecified laterality Lung location: unspecified part of lung
== END 2024-10-11 12:22 | disposition home or self-care (01) ==
PROVIDERS: PCP Internal Medicine; Visit Provider Physician Assistant Medical
DX: Z13.9 Encounter for screening, unspecified (principal); J18.9 Pneumonia, unspecified organism

== ENCOUNTER → 2024-10-11 10:16 | Outpatient (BNVA) | payer MEDICARE, SELFPAY | PROVIDERS: PCP Internal Medicine; Visit Provider Physician Assistant Medical | DX: J18.9 Pneumonia, unspecified organism (principal); Z79.2 Long term (current) use of antibiotics | CPT/HCPCS: 81003; 99212 ==

== ENCOUNTER 2025-01-04 14:18 | Outpatient (AMB) | payer MEDICARE, SELFPAY ==
[2025-01-04 14:22] VITALS: BP 110/72; PULSE 79; O2SAT 97; BMI 28.8
--- NOTE | 2025-01-04 14:22 | MHC.PC.OV ---
Vital Signs 01/04/25 14:22 Height 5 ft 5 in Weight 173 lb BMI 28.8 BP 110/72 Blood Pressure Location Lt brachial Position Sitting Pulse 79 Pulse Source Pulse Oximeter Pulse Oximetry (%) 97 Intake Visit Reasons: Annual Physical - see comments Fitness Manager Required: No Accompanied by: Self / Same As Patient Allergies Penicillins (PENICILLINS) Allergy (Severe, Verified 01/04/25 14:23) ANAPHYLAXIS codeine Allergy (Unknown, Verified 01/04/25 14:23) dizziness, hives morphine Allergy (Unknown, Verified 01/04/25 14:23) Unknown penicillin V Allergy (Unknown, Verified 01/04/25 14:23) anaphylaxis [id number]-[id number] Reductase Inhibitor Adverse Reaction (Mild, Verified 01/04/25 14:23) foginess in head Medication List - Last Reconciled 01/04/25 by Evita Vyas MD albuterol sulfate 90 mcg/actuation (ProAir RespiClick) 1 inh inhalation Q4-6H PRN 30 days albuterol sulfate 1.25 mg (3 mL) inhalation Q4-6H PRN 7 days budesonide-formoterol 160-4.5 mcg/actuation (Symbicort) 2 puffs inhalation BID 30 days clotrimazole-betamethasone 1-0.05 % 1 appl topical ONCE 30 days ezetimibe 10 mg PO DAILY 90 days fenofibrate nanocrystallized 145 mg PO DAILY Synthroid (levothyroxine) 125 mcg PO DAILY NS Tobacco use date assessed: 07/27/24 Dental Screening Dental Screen Date: 07/27/24 HPI Annual Physical - see comments HPI Details PE The patient is a 59-year-old female presenting with asthma exacerbation and associated symptoms. Bronchial Asthma: - The patient has a known history of asthma. - Reports regular use of Symbicort, yet symptoms persist. - Asthma control has worsened post pneumonia episode. - Previous use of prednisone provided symptom relief. - Currently experiencing breathing difficulty and wheezing. - due for PFTs order placed Gastroesophageal Reflux Disease (GERD): - Past diagnosis of GERD, not currently on medication for it. - Has difficulty swallowing solids and experiences a choking sensation. - These symptoms cause increased difficulty in eating. - Symptoms reported to influence and potentially worsen asthma. - dont want to see Gastro yet Dysphagia: - Difficulty swallowing, sensation of food sticking noted. - Needs to consume hot water to aid swallowing. - Reports issues with swallowing pills; feels like stuck if not with hot water. Medical History: - Asthma - Gastroesophageal Reflux Disease (GERD) - History of Pneumonia - lipid disorder - hypothyroidism Social History: - Reports dietary adjustments such as consuming soft foods like beans and soups. - Consumes water after 8 PM and stops meals by around 7 PM to manage symptoms. - Occasionally consumes alcoholic beverages, with low to moderate intake frequency. Health Maintenance - Scheduled for a mammogram in four days at [facility]'s [place]. - Advised to complete the bloodwork for routine check-up tomorrow. - Encouraged dietary adjustments for better management of GERD symptoms. - Discussed potential need for endoscopic evaluation for unresolved GERD symptoms. Diagnostic results - Cologuard completed three years ago, results were satisfactory. Patient Instructions - Schedule for a pulmonary function test as recommended during the visit. - Begin pantoprazole at bedtime to manage GERD symptoms and prevent exacerbation of asthma. - Start a short course of prednisone for acute asthma symptoms. - Ensure routine blood tests are completed tomorrow while fasting. - Adjust meal times to commence earlier to manage GERD symptoms, aiming to begin eating by 6 PM. - Return for a follow-up in three months to reassess symptoms and medication efficacy. - Attend mammogram appointment as scheduled. - Consider scheduling with a hose operator for endoscopic evaluation if advised. - PFT order placed Review of Systems - General: No fever no chills - Neurological: No headaches no dizziness - Ear nose throat: No sore throat no hearing difficulty no ear pain - Cardiovascular: No syncope, no chest pain, no palpitations - Gastrointestinal: No nausea vomiting or diarrhea - Endocrine: No polyuria polydipsia no heat intolerance - Genitourinary: No dysuria - Skin: No new complaints Physical Exam General: Cooperative, healthy appearing, comfortable, no acute distress Orientation: Patient oriented x3 Head: Normal to inspection Ears: Within normal limit visually Nose: Normal external nose present Face and sinus: Normal facial exam Eyes: Appearance normal, extraocular movement intact pupils reactive Neck: Normal visual inspection and supple, no swelling no thyromegaly Respiratory: Wheezing present, normal respiratory effort and able to speak in complete sentences. Clear to auscultation, no stridor Cardiovascular: S1 and S2 RRR GI: Normal to inspection. Soft to palpation and nontender Skin: Turgor normal, no acute findings Neuro: Patient oriented x3, motor sensory intact, balance intact, tandem pass Extremities: Normal to inspection, range of motion intact . [facility] Medical History Rash IBS (irritable bowel syndrome) Psoriasis Other specified hypothyroidism Asthma, mild Lipid disorder Surgical History History of hysteroscopy History of colonoscopy History of wisdom tooth extraction History of appendectomy Ovarian cyst Family History Father Stomach cancer Mother Bone cancer HTN (hypertension) Tumor Sister Uterine cancer Daughter History of CVA (cerebrovascular accident) Son Cancer Brother No problems noted. Brother No problems noted. Social History Housing: House Patient Tobacco Use Status: Never used Tobacco e-Cigarette/Vaping Use: Never Used service: No Current occupational status: disabled Cognitive needs: No Hearing needs: No Vision needs: No Questionnaire PHQ-9 Over the last 2 weeks, how often have you been bothered by any of the following problems? 1. Little interest or pleasure in doing things: not at all 2. Feeling down, depressed, or hopeless: more than half the days 3. Trouble falling or staying asleep, or sleeping too much: not at all 4. Feeling tired or having little energy: nearly every day 5. Poor appetite or overeating: not at all 6. Feeling bad about yourself - or that you are a failure or have let yourself or your family down: not at all 7. Trouble concentrating on things, such as reading the newspaper or watching television: nearly every day 8. Moving or speaking so slowly that other people could have noticed. Or the opposite - being so fidgety or restless that you have been moving around a lot more than usual: not at all 9. Thoughts that you would be better off or of hurting yourself in some way: not at all Total score: 8 Depression Screening Interpretation: Positive Depression Screening Follow-up: Declines treatment Depression Screening Done: Yes 33881 - PHQ-9 Billing: Yes Source: Developed by Drs. Dieter Erwin, Bernice B.Moises Webb and colleagues, with an educational adrián from [employer]. Thrive Questionnaire Date Thrive assessed: 07/27/24 I am a: Patient What is your living situation today?: I have a steady place to live Within the past 12 months, did the food you bought not last and you didn't have the money to get more?: Sometimes True Within the past 12 months, did you worry whether your food would run out before you got money to buy more?: Sometimes True Do you have trouble paying for medicines?: I choose not to answer this question Do you have trouble getting transportation to medical appointments?: I choose not to answer this question Do you have trouble paying your heating and electricity bill?: I choose not to answer this question Do you have trouble taking care of your child, family member or friend?: I choose not to answer this question Do you have trouble with day-to-day activities such as bathing, preparing meals, shopping, managing finances, etc.?: I choose not to answer this question Are you currently unemployed and looking for a job?: I choose not to answer this question Are you interested in more education?: I choose not to answer this question Please select the resources that you would like help with: None Currently or been in a relationship where the following occur: I choose not to answer THRIVE Score: 2 AUDIT C Alcohol Use Questionnaire (AUDIT-C) 1. How often do you have a drink containing alcohol?: Monthly or less 2. How many drinks containing alcohol do you have on a typical day when you are drinking?: 1 or 2 3. How often do you have six or more drinks on one occasion?: Never Total Score: 1 Score Reviewed/Action Taken: Yes NOREEN-7 AMB Questionnaire NOREEN-7 Date NOREEN - 7 assessed: 01/04/25 Feeling nervous, anxious, or on edge: 2 = More than half the days Not being able to stop or control worryin = Nearly every day Worrying too much about different things: 3 = Nearly every day Trouble relaxin = Nearly every day Being so restless that it is hard to sit still: 3 = Nearly every day Becoming easily annoyed or irritable: 0 = Not at all Feeling afraid as if something awful might happen: 0 = Not at all Total NOREEN-7 score (0-4 normal; 5-9 mild; 10-14 moderate; 15-21 severe): 14 Source: Developed by Drs. Dieter Erwin, Bernice Myles, Moises Gonzalez and colleagues, with an educational adrián from [employer]. NOREEN-7 Assessment Billing NOREEN-7 Assessment Tool: NOREEN-7 Assessment 64933 Physical exam (Primary Care) Vital Signs: Last Vital Signs Pulse 79 01/04/25 14:22 BP 110/72 01/04/25 14:22 Pulse Ox 97 01/04/25 14:22 BMI result Body Mass Index 28.8 Tobacco/Smoking Status: Tobacco use Status Tobacco use date assessed 07/27/24 01/04/25 14:24 Patient Tobacco Use Status Never used Tobacco 01/04/25 14:24 e-Cigarette/Vaping Use Never Used 01/04/25 14:24 PHQ-9: PHQ-9 Score PHQ-9: Total score 8 01/04/25 14:59 Depression Screening Interpretation: Positive Depression Screening Follow-up: Declines treatment Thrive Assessment: Date of Thrive Assessment Date Thrive assessed 07/27/24 01/04/25 14:24 Currently or been in a relationship where the following occur: I choose not to answer Office Procedures Flu Questionnaire Does the patient have a severe egg allergy?: No Does the patient have severe life threatening allergies?: No Does the patient have a fever or illness today?: No Has the patient ever had Guillain-[place] Syndrome?: No Has the patient ever had any past reaction to a flu shot?: No Immunizations Fluarix [id number] (PF) 45 mcg (15 mcg x 3)/0.5 mL IM syringe Performing Provider: Evita Vyas MD Performing Location: [facility] Administered by: Herber Mancini CMA on 01/04/25 14:59 Dose Route Admin Location Dispensed Lot Number Expiration Date [facility] Art Educator 0.5 mL IM Right Deltoid 0.5 mL [id number] 10/04/25 [id number] [employer] VIS Given Date VIS Provided VIS Publication Date 01/04/25 Single Vaccine 24 Eligibility Eligibility Date Funding Source Not [facility] Eligible 01/04/25 Private Coding Level of Care Code Est Pt Level 4 (97076) Est Pt Prev Care 40-64y(90227) Diagnoses Encounter for general adult medical examination with abnormal findings Z00.01 Shortness of breath R06.02 Moderate persistent asthma without complication J45.40 Asthma complication type: uncomplicated Difficulty swallowing solids R13.10 Gastroesophageal reflux disease without esophagitis K21.9 Esophagitis presence: without esophagitis Other specified hypothyroidism E03.8 Prediabetes R73.03 Lipid disorder E78.9 Additional Codes NOREEN-7 Assessment Billing - NOREEN-7 Assessment Tool: NROEEN-7 Assessment 15083 ([id number]) PHQ-9 - 36827 - PHQ-9 Billing: Yes ([id number]) Assessment & Plan Assessment & Plan (1) Encounter for general adult medical examination with abnormal findings: Code(s): Z00.01 - Encounter for general adult medical examination with abnormal findings Category: Medical (2) Shortness of breath: Code(s): R06.02 - Shortness of breath Category: Medical (3) Asthma, moderate persistent: Code(s): J45.40 - Moderate persistent asthma, uncomplicated Category: Medical Qualifiers: Asthma complication type: uncomplicated Qualified Code(s): J45.40 - Moderate persistent asthma, uncomplicated (4) Difficulty swallowing solids: Code(s): R13.10 - Dysphagia, unspecified Category: Medical (5) Acid reflux: Code(s): K21.9 - Gastro-esophageal reflux disease without esophagitis Category: Medical Qualifiers: Esophagitis presence: without esophagitis Qualified Code(s): K21.9 - Gastro-esophageal reflux disease without esophagitis (6) Other specified hypothyroidism: Code(s): E03.8 - Other specified hypothyroidism Category: Medical (7) Prediabetes: Code(s): R73.03 - Prediabetes Category: Medical (8) Lipid disorder: Code(s): E78.9 - Disorder of lipoprotein metabolism, unspecified Category: Medical Plan PE The patient is a 59-year-old female presenting with asthma exacerbation and associated symptoms. Bronchial Asthma: - The patient has a known history of asthma. - Reports regular use of Symbicort, yet symptoms persist. - Asthma control has worsened post pneumonia episode. - Previous use of prednisone provided symptom relief. - Currently experiencing breathing difficulty and wheezing. - due for PFTs order placed Gastroesophageal Reflux Disease (GERD): - Past diagnosis of GERD, not currently on medication for it. - Has difficulty swallowing solids and experiences a choking sensation. - These symptoms cause increased difficulty in eating. - Symptoms reported to influence and potentially worsen asthma. - dont want to see Gastro yet Dysphagia: - Difficulty swallowing, sensation of food sticking noted. - Needs to consume hot water to aid swallowing. - Reports issues with swallowing pills; feels like stuck if not with hot water. Medical History: - Asthma - Gastroesophageal Reflux Disease (GERD) - History of Pneumonia - lipid disorder - hypothyroidism Social History: - Reports dietary adjustments such as consuming soft foods like beans and soups. - Consumes water after 8 PM and stops meals by around 7 PM to manage symptoms. - Occasionally consumes alcoholic beverages, with low to moderate intake frequency. Health Maintenance - Scheduled for a mammogram in four days at [facility] [place]. - Advised to complete the bloodwork for routine check-up tomorrow. - Encouraged dietary adjustments for better management of GERD symptoms. - Discussed potential need for endoscopic evaluation for unresolved GERD symptoms. Diagnostic results - Cologuard completed three years ago, results were satisfactory. Patient Instructions - Schedule for a pulmonary function test as recommended during the visit. - Begin pantoprazole at bedtime to manage GERD symptoms and prevent exacerbation of asthma. - Start a short course of prednisone for acute asthma symptoms. - Ensure routine blood tests are completed tomorrow while fasting. - Adjust meal times to commence earlier to manage GERD symptoms, aiming to begin eating by 6 PM. - Return for a follow-up in three months to reassess symptoms and medication efficacy. - Attend mammogram appointment as scheduled. - Consider scheduling with a hose operator for endoscopic evaluation if advised. - PFT order placed Follow-up 3 months Orders: Orders PFT pulmonary function test Today J45.40 - Moderate persistent asthma, uncomplicated, R06.02 - Shortness of breath Influenza [id number] Immunization Today Z23 - Encounter for immunization Medications: New pantoprazole 40 mg PO DAILY 90 tabs 0RF Changed From prednisone 40 mg (2 x 20 mg) PO DAILY 5 days 10 tabs 0RF To prednisone 20 mg PO DAILY 5 tabs 0RF 5 days
== END 2025-01-04 15:41 | disposition home or self-care (01) ==
LOC: HO.HMCC 14:19
PROVIDERS: PCP Internal Medicine; Visit Provider Internal Medicine
DX: Z00.01 Encounter for general adult medical examination with abnormal findings (principal); R06.02 Shortness of breath; J45.40 Moderate persistent asthma, uncomplicated; R13.10 Dysphagia, unspecified; K21.9 Gastro-esophageal reflux disease without esophagitis; E03.8 Other specified hypothyroidism; R73.03 Prediabetes; E78.9 Disorder of lipoprotein metabolism, unspecified; Z23 Encounter for immunization

== ENCOUNTER → 2025-01-04 14:18 | Outpatient (BNVA) | payer MEDICARE, SELFPAY | PROVIDERS: PCP Internal Medicine; Visit Provider Internal Medicine | DX: Z00.01 Encounter for general adult medical examination with abnormal findings (principal); J45.40 Moderate persistent asthma, uncomplicated; K21.9 Gastro-esophageal reflux disease without esophagitis; R13.10 Dysphagia, unspecified; R06.02 Shortness of breath; E03.8 Other specified hypothyroidism; R73.03 Prediabetes; E78.9 Disorder of lipoprotein metabolism, unspecified; Z23 Encounter for immunization | CPT/HCPCS: 90471; 90656; 96127; 99212; 99396 ==

== ENCOUNTER 2025-01-06 11:15 | Outpatient (REF) | payer MEDICARE, SELFPAY ==
[2025-01-06 13:18] LABS: MANUAL DIFF FLAG NO
[2025-01-06 13:27] LABS: Hematocrit 45.0 % (37.0-47.0); Hemoglobin 14.9 g/dl (12.0-16.0); Imm Gran Abs Auto 0.04 X10*3/uL (0.00-0.03); Imm Gran Pct Auto 0.5 % (0.0-0.4); Lymphocytes Absolute Auto 2.0 X10*3/uL (1.2-4.9); Mean Corpuscular HGB Conc 33.1 g/dl (31.0-35.0); Mean Corpuscular Hemoglobin 32.7 pg (27.0-33.0); Mean Corpuscular Volume 98.7 fL (80.0-98.0); NRBC Abs Auto 0.000 X10*3/uL (0.0-0.012); NRBC Pct Auto 0.0 /100WBC (0.0-0.2); Platelet Count 299 X10*3/uL (160-400); Red Blood Count 4.56 X10*6/uL (4.20-5.50); White Blood Count 8.4 X10*3/uL (4.8-10.8)
[2025-01-06 13:49] LABS: Alanine Aminotransferase 23 U/L (0-31); Albumin Level 4.3 g/dL (3.5-5.0); Alkaline Phosphatase 90 U/L (39-117); Anion Gap 9 (12-20); Aspartate Amino Transferase 21 U/L (5-31); Blood Urea Nitrogen 16 mg/dL (9-16); Calcium 9.2 mg/dL (8.4-10.2); Carbon Dioxide 27 mmol/L (22-29); Chloride 111 mmol/L (96-108); Cholesterol 261 mg/dL (<200); Estimated Glomerular Filt Rate > 60; HDL Cholesterol 46 mg/dL (>40); Potassium 4.1 mmol/L (3.3-5.1); Sodium 143 mmol/L (135-145); Total Protein 7.2 g/dL (6.5-8.0); Triglycerides 126 mg/dL (<150)
[2025-01-06 14:38] LABS: Free T4 (Free Thyroxine) 1.51 ng/dL (0.71-1.85)
== END 2025-01-06 11:16 | disposition home or self-care (01) ==
LOC: HO.HMGCLDS 11:15
PROVIDERS: PCP Internal Medicine; Visit Provider Internal Medicine
DX: R73.03 Prediabetes (principal); E78.9 Disorder of lipoprotein metabolism, unspecified; E03.8 Other specified hypothyroidism; J45.40 Moderate persistent asthma, uncomplicated; R41.3 Other amnesia
CPT/HCPCS: 36415; 80053; 80061; 83036; 84439; 84443; 85025

== ENCOUNTER 2025-03-22 14:58 | Outpatient (AMB) | payer MEDICARE, SELFPAY ==
[2025-03-22 15:00] VITALS: BP 112/72; PULSE 71; O2SAT 97; BMI 29.3
--- NOTE | 2025-03-22 15:00 | A.OFFPC_ITS ---
Vital Signs 03/22/25 15:00 Height 5 ft 5 in Weight 176 lb BMI 29.3 BP 112/72 Blood Pressure Location Lt brachial Position Sitting Pulse 71 Pulse Source Pulse Oximeter Pulse Oximetry (%) 97 Intake Visit Reasons: 11 week follow up Instructional Consultant Required: No Accompanied by: Self / Same As Patient Allergies Penicillins (PENICILLINS) Allergy (Severe, Verified 03/22/25 15:03) ANAPHYLAXIS codeine Allergy (Unknown, Verified 03/22/25 15:03) dizziness, hives morphine Allergy (Unknown, Verified 03/22/25 15:03) Unknown penicillin V Allergy (Unknown, Verified 03/22/25 15:03) anaphylaxis Iejuiit-YHB-TlR Reductase Inhibitor Adverse Reaction (Mild, Verified 03/22/25 15:03) foginess in head Medication List - Last Reconciled 03/22/25 by Evita Vyas MD albuterol sulfate 90 mcg/actuation (ProAir RespiClick) 1 inh inhalation Q4-6H PRN 30 days albuterol sulfate 1.25 mg (3 mL) inhalation Q4-6H PRN 7 days budesonide-formoterol 160-4.5 mcg/actuation (Symbicort) 2 puffs inhalation BID 30 days clotrimazole-betamethasone 1-0.05 % 1 appl topical ONCE 30 days ezetimibe 10 mg PO DAILY 90 days fenofibrate nanocrystallized 145 mg PO DAILY levothyroxine (Synthroid) 100 mcg PO DAILY pantoprazole 40 mg PO DAILY Tobacco use date assessed: 07/27/24 Dental Screening Dental Screen Date: 07/27/24 HPI HPI Comments History of Present Illness Details History of Present Illness The patient is a 60 year old female presenting with a follow-up visit for chronic conditions and medication management. Hypercholesterolemia: - Labs from January showed high choleste rol, with an LDL of 190 mg/dL, which was an increase from 157 mg/dL in July. - The patient reports taking her thyroid medication and breakfast daily and does not skip doses. - She previously experienced fogginess i n her hair with simvastatin. - Current medication, fenofibrate, is no juancarlos to be less effective for LDL cholesterol. Hypothyroidism: - Lab results from January indicated an abnormal thyroid test result, for which her medication was adjusted. GERD: - The patient reports feeling better aft er taking pantoprazole for her stomach. - She has recently experienced heartburn , which she attributes to stress from caregiving for her . Asthma: - The patient's breathing is much better . - She is prescribed Symbicort and an alb uterol inhaler for as-needed use, but has been unable to refill her albuterol inhaler since October due to insurance issues. - She has been using her maintenance inh aler once daily in the morning. - She has a nebulizer machine at home bu t has not used it since her last visit. Preventative Care: - The patient did not have a pulmonary f unction test as scheduled in December. - She is unsure if her mammogram was com pleted. - She did not complete a follow-up blood test as instructed. Medical History: - Hypercholesterolemia - Hypothyroidism - Asthma - Gastroesophageal reflux disease Medications: - Pantoprazole for GERD/heartburn. - Thyroid medication, taken every mornin g. - Fenofibrate for cholesterol. - Symbicort for asthma. - Albuterol inhaler for as-needed use, t alek she has had trouble refilling it. Social History: - Caregiver: The patient is the primary caregiver for her , who fractured his hip twice after a fall. - Stress: She reports her situation has been very stressful and she has not had time to care for herself. [facility] Medical History Rash IBS (irritable bowel syndrome) Psoriasis Other specified hypothyroidism Asthma, mild Lipid disorder Surgical History History of hysteroscopy History of colonoscopy History of wisdom tooth extraction History of appendectomy Ovarian cyst Family History Father Stomach cancer Mother Bone cancer HTN (hypertension) Tumor Sister Uterine cancer Daughter History of CVA (cerebrovascular accident) Son Cancer Brother No problems noted. Brother No problems noted. Social History Housing: House Patient Tobacco Use Status: Never used Tobacco e-Cigarette/Vaping Use: Never Used service: No Current occupational status: disabled Cognitive needs: No Hearing needs: No Vision needs: No Questionnaire Thrive Questionnaire Date Thrive assessed: 07/27/24 I am a: Patient What is your living situation today?: I have a steady place to live Within the past 12 months, did the food you bought not last and you didn't have the money to get more?: Sometimes True Within the past 12 months, did you worry whether your food would run out before you got money to buy more?: Sometimes True Do you have trouble paying for medicines?: I choose not to answer this question Do you have trouble getting transportation to medical appointments?: I choose not to answer this question Do you have trouble paying your heating and electricity bill?: I choose not to answer this question Do you have trouble taking care of your child, family member or friend?: I choose not to answer this question Do you have trouble with day-to-day activities such as bathing, preparing meals, shopping, managing finances, etc.?: I choose not to answer this question Are you currently unemployed and looking for a job?: I choose not to answer this question Are you interested in more education?: I choose not to answer this question Please select the resources that you would like help with: None Currently or been in a relationship where the following occur: I choose not to answer THRIVE Score: 2 NOREEN-7 AMB Questionnaire NOREEN-7 Date NOREEN - 7 assessed: 01/04/25 Source: Developed by Drs. Dieter Erwin, Bernice Myles, Moises Gonzalez and colleagues, with an educational adrián from [employer]. Review of Systems Narrative Review of Systems - General: No fever no chills - Neurological: No headaches no dizziness - Ear nose throat: No sore throat no hearing difficulty no ear pain - Cardiovascular: No syncope, no chest pain, no palpitations - Gastrointestinal: No nausea vomiting or diarrhea - Endocrine: No polyuria polydipsia no heat intolerance - Genitourinary: No dysuria , no blood in urine Physical exam (Primary Care) Vital Signs: Last Vital Signs Pulse 71 03/22/25 15:00 BP 112/72 03/22/25 15:00 Pulse Ox 97 03/22/25 15:00 BMI result Body Mass Index 29.3 Tobacco/Smoking Status: Tobacco use Status Tobacco use date assessed 07/27/24 03/22/25 15:01 Patient Tobacco Use Status Never used Tobacco 03/22/25 15:01 e-Cigarette/Vaping Use Never Used 03/22/25 15:01 Thrive Assessment: Date of Thrive Assessment Date Thrive assessed 07/27/24 03/22/25 15:01 Currently or been in a relationship where the following occur: I choose not to answer Narrative Physical Exam - General: No acute distress - HEENT: No acute findings - Neck: Supple - Respiratory system: Able to talk in full sentences, no audible wheeze - Cardiovascular: S1-S2 regular in rate and rhythm - Gastrointestinal: No pain - Extremities: No new findings - CORPORATE SAFETY COORDINATOR: Alert awake oriented x3 motor intact - Skin: Normal turgor Coding Level of Care Code Est Pt Level 4 (97324) Add On Problem Visit Only Diagnoses Other specified hypothyroidism E03.8 Moderate persistent asthma without complication J45.40 Asthma complication type: uncomplicated Gastroesophageal reflux disease without esophagitis K21.9 Esophagitis presence: without esophagitis Prediabetes R73.03 Lipid disorder E78.9 Assessment & Plan Assessment & Plan (1) Other specified hypothyroidism: Code(s): E03.8 - Other specified hypothyroidism Category: Medical (2) Asthma, moderate persistent: Code(s): J45.40 - Moderate persistent asthma, uncomplicated Category: Medical Qualifiers: Asthma complication type: uncomplicated Qualified Code(s): J45.40 - Moderate persistent asthma, uncomplicated (3) Acid reflux: Code(s): K21.9 - Gastro-esophageal reflux disease without esophagitis Category: Medical Qualifiers: Esophagitis presence: without esophagitis Qualified Code(s): K21.9 - Gastro-esophageal reflux disease without esophagitis (4) Prediabetes: Code(s): R73.03 - Prediabetes Category: Medical (5) Lipid disorder: Code(s): E78.9 - Disorder of lipoprotein metabolism, unspecified Category: Medical Plan Problem List - Hypercholesterolemia - Hypothyroidism - Asthma - Gastroesophageal reflux disease (GERD) - Preventative care: Pulmonary function testing - Preventative care: Mammogram screening Plan - Ordered atorvastatin 10 mg to be taken at bedtime for hypercholesterolemia. - Will continue fenofibrate and Zetia, refills will be sent. - Ordered a repeat thyroid test to check if the current dose is appropriate. - Refill for pantoprazole will be sent. - Will continue Symbicort for asthma. - Changed the patient's rescue inhaler prescription to a different one that is hopefully covered by her insurance; a new prescription for albuterol has been sent. - The patient will be provided with the number to call and schedule a pulmonary function test. - Cancelled the upcoming appointment scheduled for 03/29. - Recommended follow-up in early July. Orders: Orders TSH reflex Free T4 03/22/25 E03.8 - Other specified hypothyroidism Medications: New atorvastatin (Lipitor) 10 mg PO BEDTIME 90 tabs 0RF albuterol sulfate 90 mcg/actuation (Ventolin HFA) 1 inh inhalation QID PRN 8.5 grams 2RF shortness of breath or wheezing Refilled pantoprazole 40 mg PO DAILY 90 tabs 0RF fenofibrate nanocrystallized 145 mg PO DAILY 90 tabs 0RF ezetimibe 10 mg PO DAILY 90 tabs 1RF 90 days E78.9 - Disorder of lipoprotein metabolism, unspecified Discontinued albuterol sulfate 90 mcg/actuation (ProAir RespiClick) Discontinued Reason: Doctor's Order 1 inh inhalation Q4-6H 30 days PRN 1 ea 0RF shortness of breath or wheezing
== END 2025-03-22 15:39 | disposition home or self-care (01) ==
LOC: HO.HMCC 14:59
PROVIDERS: PCP Internal Medicine; Visit Provider Internal Medicine
DX: E03.8 Other specified hypothyroidism (principal); J45.40 Moderate persistent asthma, uncomplicated; K21.9 Gastro-esophageal reflux disease without esophagitis; R73.03 Prediabetes; E78.9 Disorder of lipoprotein metabolism, unspecified

== ENCOUNTER → 2025-03-22 14:58 | Outpatient (BNVA) | payer MEDICARE, SELFPAY | PROVIDERS: PCP Internal Medicine; Visit Provider Internal Medicine | DX: K21.9 Gastro-esophageal reflux disease without esophagitis (principal); E78.00 Pure hypercholesterolemia, unspecified; E03.8 Other specified hypothyroidism; J45.40 Moderate persistent asthma, uncomplicated; R73.03 Prediabetes; E78.9 Disorder of lipoprotein metabolism, unspecified; Z79.899 Other long term (current) drug therapy | CPT/HCPCS: 99212 ==